=== PATIENT | female | born 1935 | race Caucasian/White ===

== ENCOUNTER 2017-05-08 11:11 | Emergency (ER) | payer MEDICARE, BC ==
[~2017-05-08] VITALS: Ht 160 cm; Wt 110.0 kg
[2017-05-08 13:10] LABS: BASOPHILS % (AUTO) 0.4 % (0-1); EOSINOPHILS # (AUTO) 0.3 X10'3 (0-0.9); EOSINOPHILS % (AUTO) 2.9 % (0-6); HEMATOCRIT 42.6 % (35.0-45.0); HEMOGLOBIN 14.6 g/dl (12.0-16.0); LYMPHOCYTES # (AUTO) 3.6 X10'3 (1.1-4.8); MEAN CORPUSCULAR HEMOGLOBIN 31.8 PG (27.0-31.0); MEAN CORPUSCULAR HGB CONC 34.2 % (33.0-36.5); MEAN PLATELET VOLUME 8.4 FL (7.4-10.4); MONOCYTES # (AUTO) 0.8 X10'3 (0-0.9); MONOCYTES % (AUTO) 7.6 % (2-12); NEUTROPHILS # (AUTO) 6.1 X10'3 (1.8-7.7); NEUTROPHILS % (AUTO) 56.1 % (42-75); PLATELET COUNT 227 X10'3 (140-440); RED BLOOD COUNT 4.58 X10'6 (4.20-5.60); RED CELL DISTRIBUTION WIDTH 14.4 % (11.5-14.5); WHITE BLOOD COUNT 10.9 X10'3 (4.5-11.0)
[2017-05-08] MEDS ORDERED: iohexol 350MG/ML 100ml bottle IV ONE (13:23)
[2017-05-08 13:26] LABS: ALANINE AMINOTRANSFERASE 45 U/L (12-78); ALBUMIN 3.5 G/DL (3.4-5.0); ALBUMIN/GLOBULIN RATIO 0.9 (1.1-1.5); ALKALINE PHOSPHATASE 76 IU/L (46-116); ANION GAP 8 (8-16); ASPARTATE AMINO TRANSFERASE 29 U/L (10-37); BILIRUBIN,TOTAL 0.6 MG/DL (0.1-1.0); BLOOD UREA NITROGEN 22 MG/DL (7-18); BUN/CREATININE RATIO 16.8 (6.6-38.0); CALCIUM 9.7 MG/DL (8.5-10.1); CHLORIDE 101 MMOL/L (99-107); CREATININE 1.31 MG/DL (0.40-0.90); GLUCOSE 297 MG/DL (70-104); POTASSIUM 4.7 MMOL/L (3.5-5.1); SODIUM 137 MMOL/L (135-145); TOTAL PROTEIN 7.2 G/DL (6.4-8.2); eGFR 39 ML/MIN
[2017-05-08] MEDS ORDERED: dexamethasone sod phosphate 10mg/ml inj IM STA (13:36)
[2017-05-08] MEDS ORDERED: NAPR-56 PO (16:36)
[2017-05-08] MEDS ORDERED: METH4TAB3 PO (16:36)
[2017-05-08 17:15] VITALS: BP 168/86
== END 2017-05-08 17:16 | disposition home or self-care (01) ==
LOC: ER 11:11
DX: M48.061 Spinal stenosis, lumbar region without neurogenic claudication (principal); M48.02 Spinal stenosis, cervical region; E11.9 Type 2 diabetes mellitus without complications; Z95.1 Presence of aortocoronary bypass graft; Z88.8 Allergy status to other drugs, medicaments and biological substances
CPT/HCPCS: 36415; 71045; 71275; 72141; 72148; 74174; 80053; 84484; 85025; 93005; 96372; 99291; 99292; J1100; Q9967; 71260; 74177

== ENCOUNTER 2017-05-14 11:53 | Emergency (ER) | payer MEDICARE, BC ==
[~2017-05-14] VITALS: Ht 160 cm; Wt 92.3 kg
[~2017-05-14 11:53] MED LIST: METH4TAB3 PO; NAPR-56 PO
[2017-05-14 12:02] VITALS: BP 107/57
[2017-05-14] MEDS ORDERED: PANT-47 PO (12:28)
[2017-05-14] MEDS ORDERED: pantoprazole 40mg Tablet.DR PO ONE (12:30)
== END 2017-05-14 12:53 | disposition home or self-care (01) ==
LOC: ER 11:53
DX: R10.12 Left upper quadrant pain (principal); E11.9 Type 2 diabetes mellitus without complications; Z95.1 Presence of aortocoronary bypass graft; Z88.6 Allergy status to analgesic agent
CPT/HCPCS: 82948; 99284

== ENCOUNTER 2021-07-05 14:54 | Emergency (ER) | payer MEDICARE, BC ==
[~2021-07-05] VITALS: Ht 160 cm; Wt 83.2 kg
[~2021-07-05 14:54] MED LIST changes: -NAPR-56 PO; +PANT-47 PO
[2021-07-05] MEDS ORDERED: morphine 4 MG/ML inj SYRINge IV ONE (17:45)
[2021-07-05] MEDS ORDERED: ondansetron/PF 4mg/2ml inj IV ONE (17:45)
[2021-07-05] MEDS ORDERED: propofol 10mg/ml 20ml vial IV ONE (18:25)
--- NOTE | 2021-07-05 19:30 | NUR ---
MEDICAL REVIEW SPECIALIST APPLYING SPLINT AT THIS TIME. X-RAY TECH CAME IN PRIOR.
[2021-07-05] MEDS ORDERED: HYDR-3965 PO (20:12)
[2021-07-05 20:34] VITALS: BP 166/71
== END 2021-07-05 20:20 | disposition home or self-care (01) ==
LOC: ER 14:54
DX: S53.115A Anterior dislocation of left ulnohumeral joint, initial encounter (principal); E11.9 Type 2 diabetes mellitus without complications; Z98.890 Other specified postprocedural states; Z88.1 Allergy status to other antibiotic agents; Z88.8 Allergy status to other drugs, medicaments and biological substances; Z79.899 Other long term (current) drug therapy; W19.XXXA Unspecified fall, initial encounter; Y93.89 Activity, other specified; Y92.89 Other specified places as the place of occurrence of the external cause; Y99.8 Other external cause status
CPT/HCPCS: 25605; 73080; 94799; 96374; 96375; 99152; 99285; J2270; J2405; J2704; 94760

== ENCOUNTER 2023-04-16 12:13 | Observation (INO) | payer MEDICARE, BC ==
[~2023-04-16] VITALS: Ht 157.5 cm; Wt 75.0 kg
[~2023-04-16 12:13] MED LIST changes: +BEMP180T PO; +CARV3.122 PO; +CHOL20003 PO; +CYAN-104 PO; +EMPA25TA PO; +FERR324T4 PO; +GLIP10TA21 PO; +LEVO50TA PO; +LOSA25TA41 PO; +MAGN500T2 PO; -METH4TAB3 PO; +OMEG-220 PO; +RIVA10TA PO
[2023-04-16 13:14] LABS: BASOPHILS % (AUTO) 0.4 % (0-1); EOSINOPHILS # (AUTO) 0.1 X10'3 (0-0.9); LYMPHOCYTES # (AUTO) 1.8 X10'3 (1.1-4.8); LYMPHOCYTES % (AUTO) 24.6 % (21-51); MEAN CORPUSCULAR HEMOGLOBIN 29.6 PG (27.0-31.0); MEAN CORPUSCULAR HGB CONC 30.9 g/dL (33.0-36.5); MEAN CORPUSCULAR VOLUME 95.8 FL (78-98); MEAN PLATELET VOLUME 7.4 FL (7.4-10.4); MONOCYTES # (AUTO) 0.4 X10'3 (0-0.9); MONOCYTES % (AUTO) 5.8 % (2-12); NEUTROPHILS % (AUTO) 68.2 % (42-75); PLATELET COUNT 351 X10'3 (140-440); RED BLOOD COUNT 2.23 X10'6 (4.20-5.60); RED CELL DISTRIBUTION WIDTH 15.5 % (11.5-14.5); WHITE BLOOD COUNT 7.4 X10'3 (4.5-11.0)
[2023-04-16 13:18] LABS: HEMATOCRIT 21.3 % (35.0-45.0); HEMOGLOBIN 6.6 g/dl (12.0-16.0)
[2023-04-16 13:21] LABS: ALBUMIN 3.1 G/DL (3.4-5.0); ANION GAP 8 (8-16); BLOOD UREA NITROGEN 35 MG/DL (7-18); BUN/CREATININE RATIO 21.6 (10.0-20.0); CALCIUM 8.4 MG/DL (8.5-10.1); CHLORIDE 100 MMOL/L (99-107); CREATININE 1.62 MG/DL (0.40-0.90); GLUCOSE 399 MG/DL (70-104); POTASSIUM 4.6 MMOL/L (3.5-5.1); SODIUM 135 MMOL/L (135-145); TOTAL CARBON DIOXIDE 26.7 MMOL/L (24-32); eCRCL 20 ML/MIN; eGFR 30 ML/MIN
[2023-04-16 13:22] LABS: APTT 34 SECONDS (22-32); INR 1.5 INR; PROTHROMBIN TIME 15.6 SECONDS (9.0-12.0)
[2023-04-16] MEDS ORDERED: magnesium 4gm in 100ml NS 100 ML IV PRN (15:35)
[2023-04-16] MEDS ORDERED: potassium Cl 20 mEq SR tablet PO PRN ×2 (15:35)
[2023-04-16] MEDS ORDERED: potassium Cl 40MEQ/1/2NS 520ml 520 ML IV PRN (15:35)
[2023-04-16] MEDS ORDERED: magnesium Cl slow-release 64mg tablet PO PRN (15:35)
[2023-04-16] MEDS ORDERED: ondansetron/PF 4mg/2ml inj IV PRN (15:35)
[2023-04-16] MEDS ORDERED: acetaminophen 325mg tablet PO PRN ×2 (15:35)
[2023-04-16] MEDS ORDERED: magnesium 2GM in 50ml NS 50 ML IV PRN (15:35)
[2023-04-16] MEDS ORDERED: RIVA20TA PO (16:19)
[2023-04-16] MEDS ORDERED: RED600CA2 PO (16:19)
[2023-04-16] MEDS ORDERED: MULT-1133 PO (16:19)
[2023-04-16] MEDS ORDERED: FOLI0.4T6 PO (16:19)
[2023-04-16 16:39] VITALS: BP 150/49; PULSE 73; RESP 16; TEMP 98.3
[2023-04-16 16:57] VITALS: BP 147/49; PULSE 67; RESP 18; TEMP 97.9
[2023-04-16 17:10] LABS: BILIRUBIN,URINE NEGATIVE (Neg); CLARITY,URINE CLEAR (Clear); COLOR,URINE YELLOW (Yellow); GLUCOSE, URINE >=1000 mg/dl (Neg); KETONES,URINE NEGATIVE (Neg); LEUKOCYTE ESTERASE ,URINE NEGATIVE (Neg); NITRITES, URINE NEGATIVE (Neg); OCCULT BLOOD,URINE NEGATIVE (Neg); PROTEIN,URINE NEGATIVE (Neg); UROBILINOGEN,URINE 0.2 E.U/dL (0.2-1.0)
[2023-04-16 17:16] LABS: UA COLLECTION TYPE CLN CATCH MIDSTREAM
[2023-04-16 17:20] LABS: BACTERIA,URINE FEW /HPF (Neg); RBC,URINE 0-2 /HPF (0-2); SQUAMOUS EPITHELIAL CELL,UR FEW /LPF (FEW); WBC,URINE 0-4 /HPF (0-4)
[2023-04-16] MEDS ORDERED: dextrose 50%-water 50ml dispensing syringe IV PRN ×2 (19:05)
[2023-04-16] MEDS ORDERED: DEXTROSE 15 GM of carb/4 tabs (each vial/BOTTLE has 4 tablets) PO PRN ×2 (19:05)
[2023-04-16] MEDS ORDERED: glucagon, human recombinant 1mg kit SUBCUT PRN (19:05)
[2023-04-16] MEDS: MESSAGE TO PHARMACY PO ONE (19:36)
[2023-04-16 19:55] VITALS: BP 154/52; PULSE 64; RESP 21; TEMP 98.1
[2023-04-16 20:16] VITALS: BP 149/53; PULSE 58; RESP 20; TEMP 98.6
[2023-04-16] MEDS: K and/or MAG REPLACEMENT MC SCH (21:14)
[2023-04-16] MEDS: insulin Lispro (HumaLOG) vial - multi-dose SQ SCH (21:26)
[2023-04-16] MEDS: insulin glargine (Lantus) pen - multi-dose SQ SCH (21:28)
[2023-04-16] MEDS: pantoprazole 40 MG vial IV SCH (21:29)
[2023-04-16 21:59] VITALS: BP 155/106; PULSE 67; RESP 21; TEMP 98.1
[2023-04-17 01:44] LABS: OCCULT BLOOD STOOL POSITIVE (Neg)
[2023-04-17 02:13] VITALS: BP 149/54; PULSE 52; RESP 20; TEMP 98.1; O2SAT 94
[2023-04-17 03:00] VITALS: RESP 20; O2SAT 94
[2023-04-17 03:17] VITALS: BP 149/54; PULSE 52; RESP 20; TEMP 98.1; O2SAT 94
[2023-04-17 03:58] VITALS: RESP 20; O2SAT 94
[2023-04-17 05:47] LABS: EOSINOPHILS # (AUTO) 0.2 X10'3 (0-0.9); MONOCYTES # (AUTO) 0.9 X10'3 (0-0.9)
[2023-04-17 05:50] LABS: BASOPHILS % (AUTO) 0.4 % (0-1); EOSINOPHILS % (AUTO) 1.8 % (0-6); HEMATOCRIT 30.8 % (35.0-45.0); LYMPHOCYTES # (AUTO) 2.6 X10'3 (1.1-4.8); MEAN CORPUSCULAR HGB CONC 32.4 g/dL (33.0-36.5); MEAN CORPUSCULAR VOLUME 92.5 FL (78-98); MEAN PLATELET VOLUME 7.3 FL (7.4-10.4); MONOCYTES % (AUTO) 8.3 % (2-12); NEUTROPHILS # (AUTO) 7.5 X10'3 (1.8-7.7); NEUTROPHILS % (AUTO) 66.5 % (42-75); PLATELET COUNT 274 X10'3 (140-440); RED BLOOD COUNT 3.32 X10'6 (4.20-5.60); RED CELL DISTRIBUTION WIDTH 16.7 % (11.5-14.5); WHITE BLOOD COUNT 11.3 X10'3 (4.5-11.0)
[2023-04-17 05:55] LABS: ALBUMIN 2.8 G/DL (3.4-5.0); ANION GAP 9 (8-16); BLOOD UREA NITROGEN 34 MG/DL (7-18); CALCIUM 8.5 MG/DL (8.5-10.1); CHLORIDE 105 MMOL/L (99-107); CREATININE 1.48 MG/DL (0.40-0.90); GLUCOSE 155 MG/DL (70-104); MAGNESIUM 2.2 MG/DL (1.5-2.4); POTASSIUM 4.1 MMOL/L (3.5-5.1); SODIUM 139 MMOL/L (135-145); TOTAL CARBON DIOXIDE 24.6 MMOL/L (24-32); eCRCL 22 ML/MIN; eGFR 34 ML/MIN
[2023-04-17 06:00] VITALS: BP 142/37; PULSE 57; RESP 18; TEMP 97.5; O2SAT 92
[2023-04-17 10:00] VITALS: BP 138/47; PULSE 71; RESP 18; TEMP 98.3; O2SAT 96
[2023-04-17] MEDS ORDERED: EMPAGLIFLOZIN 25 MG TABLET PO SCH (13:15)
[2023-04-17] MEDS: folic acid 0.4mg tablet PO SCH (15:46)
[2023-04-17] MEDS ORDERED: carVEDilol 3.125mg tablet PO SCH (20:00)
[2023-04-17] MEDS ORDERED: pantoprazole 40mg Tablet.DR PO SCH (20:00)
[2023-04-17] MEDS ORDERED: OMEGA-3/DHA/EPA/FISH OIL 1 EACH CAPSULE.DR PO SCH (20:00)
[2023-04-17] MEDS ORDERED: losartan 25mg tablet PO SCH (21:00)
[2023-04-17] MEDS ORDERED: rivaroxaban 20mg tablet PO SCH (21:00)
[2023-04-18] MEDS ORDERED: ferrous sulfate 325mg tablet PO SCH (08:00)
[2023-04-18] MEDS ORDERED: multivitamins, therapeutics tablet PO SCH (08:00)
[2023-04-18] MEDS ORDERED: levoTHYROXINE 25mcg tablet PO SCH (08:00)
[2023-04-18] MEDS ORDERED: magnesium oxide 400mg tablet PO SCH (08:00)
[2023-04-18] MEDS ORDERED: cholecalciferol (vitamin D3) 1,000 unit (25mcg) tablet PO SCH (08:00)
[2023-04-18] MEDS ORDERED: RED YEAST RICE PO SCH (08:00)
== END 2023-04-17 17:25 | disposition home or self-care (01) ==
LOC: ER 12:14 → ED HOLD 15:36 → UNDOADMOB 15:36 → ED HOLD 04-17 00:43 → SUR 3N 04-17 01:41
PROVIDERS: ADMIT Internal Medicine; ATTEND Internal Medicine
DX: D50.0 Iron deficiency anemia secondary to blood loss (chronic) (principal); I25.10 Atherosclerotic heart disease of native coronary artery without angina pectoris; I11.0 Hypertensive heart disease with heart failure; I50.9 Heart failure, unspecified; E11.9 Type 2 diabetes mellitus without complications; E03.9 Hypothyroidism, unspecified; E78.5 Hyperlipidemia, unspecified; K21.9 Gastro-esophageal reflux disease without esophagitis; E78.00 Pure hypercholesterolemia, unspecified; K92.2 Gastrointestinal hemorrhage, unspecified; Z66 Do not resuscitate; Z79.01 Long term (current) use of anticoagulants; Z79.84 Long term (current) use of oral hypoglycemic drugs; Z95.1 Presence of aortocoronary bypass graft; Z79.899 Other long term (current) drug therapy
CPT/HCPCS: 36415; 36430; 80048; 81001; 82272; 82948; 83036; 83735; 85025; 85610; 85730; 86885; 86900; 86901; 86920; 87081; 93005; 96374; 96376; 99285; C9113; G0378; J1815; J7030; P9016

== ENCOUNTER 2023-06-28 14:48 | Emergency (ER) | payer MEDICARE, BC ==
[~2023-06-28] VITALS: Ht 162.6 cm; Wt 80.0 kg
[~2023-06-28 14:48] MED LIST changes: -BEMP180T PO; -CYAN-104 PO; +FOLI0.4T6 PO; -GLIP10TA21 PO; +MULT-1133 PO; -PANT-47 PO; +RED600CA2 PO; -RIVA10TA PO; +RIVA20TA PO
[2023-06-28 14:55] VITALS: BP 143/92; PULSE 58; RESP 18; TEMP 98.6; O2SAT 97
== END 2023-06-28 16:40 | disposition left against medical advice (07) ==
LOC: ER 14:49
DX: D58.2 Other hemoglobinopathies (principal); Z53.21 Procedure and treatment not carried out due to patient leaving prior to being seen by health care provider

== ENCOUNTER 2024-07-25 11:42 | Emergency (ER) | payer MEDICARE, BC ==
[~2024-07-25] VITALS: Ht 157.5 cm; Wt 62.7 kg
[~2024-07-25 11:42] MED LIST changes: -OMEG-220 PO; +OMEG-270 PO; +PANT-47 PO
[2024-07-25 13:11] LABS: BASOPHILS # (AUTO) 0.1 X10'3 (0-0.2); BASOPHILS % (AUTO) 1.2 % (0-1); EOSINOPHILS # (AUTO) 0.1 X10'3 (0-0.9); EOSINOPHILS % (AUTO) 1.4 % (0-6); LYMPHOCYTES # (AUTO) 1.9 X10'3 (1.1-4.8); MEAN CORPUSCULAR HEMOGLOBIN 31.9 PG (27.0-31.0); MEAN CORPUSCULAR HGB CONC 32.5 g/dL (33.0-36.5); MEAN PLATELET VOLUME 6.9 FL (7.4-10.4); MONOCYTES # (AUTO) 0.4 X10'3 (0-0.9); MONOCYTES % (AUTO) 5.6 % (2-12); NEUTROPHILS # (AUTO) 5.3 X10'3 (1.8-7.7); NEUTROPHILS % (AUTO) 67.8 % (42-75); PLATELET COUNT 415 X10'3 (140-440); RED BLOOD COUNT 2.21 X10'6 (4.20-5.60); RED CELL DISTRIBUTION WIDTH 14.4 % (11.5-14.5); WHITE BLOOD COUNT 7.8 X10'3 (4.5-11.0)
[2024-07-25 13:24] LABS: HEMATOCRIT 21.6 % (35.0-45.0)
[2024-07-25 13:25] LABS: ALBUMIN 3.3 G/DL (3.4-5.0); ANION GAP 15 (8-16); BLOOD UREA NITROGEN 79 MG/DL (7-18); BUN/CREATININE RATIO 33.1 (10.0-20.0); CALCIUM 9.1 MG/DL (8.5-10.1); CHLORIDE 102 MMOL/L (99-107); CREATININE 2.39 MG/DL (0.40-0.90); GLUCOSE 198 MG/DL (70-104); POTASSIUM 5.3 MMOL/L (3.5-5.1); SODIUM 142 MMOL/L (135-145); TOTAL CARBON DIOXIDE 25.5 MMOL/L (24-32); eCRCL 13 ML/MIN; eGFR 19 ML/MIN
--- NOTE | 2024-07-25 17:51 | Physician Documentation ---
History of Present Illness ~ Chief Complaint: Weakness Stated Complaint: ABNORMAL LABS Time Seen by MD: 17:39 OK to notify your PCP?: Yes Primary Medical Doctor: MAGALI ERAZO Mode of Arrival: Dropped Off HPI 88-year-old female who presents to the emergency department at the request of her doctor for a blood transfusion, patient has a history of anemia and has been evaluated by a food safety coordinator in [facility], has been transferred back up to the [facility] in his waiting to get a new hematology oncologist. She has had endoscopies and colonoscopies in the can not find the source of the blood loss. 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 Patient does have a history of three way heart bypass and cardiovascular disease. Timing/Duration: days Prehospital Care: none Weakness: generalized Activities at Onset: light exertion Symptoms: None History of: No History of: GI bleed Severity: none Medication Reconciliation Allergies: Coded Allergies: amoxicillin (Unverified Allergy, Unknown, 07/25/24) clavulanic acid (Unverified Allergy, Unknown, 07/25/24) levofloxacin (Unverified Allergy, Unknown, 07/25/24) liraglutide (Unverified Allergy, Unknown, 07/25/24) rosiglitazone (Unverified Allergy, Unknown, 07/25/24) saxagliptin (Unverified Allergy, Unknown, 07/25/24) Uncoded Allergies: REPATHA (Allergy, Intermediate, FLUID ON LUNGS, 01/26/23) WAS ADMITTED 04/2022 FOR REPATHA ALLERGY PER PATIENT Scheduled Carvedilol (Carvedilol), 1 TAB PO BID, (Reported) Cholecalciferol (Vitamin D3) (Vitamin D3), 1 TAB PO DAILY, (Reported) Empagliflozin (Jardiance), 1 TAB PO DAILY, (Reported) Ferrous Sulfate (Ferrous Sulfate), 1 TAB PO DAILY Folic Acid* (Folic Acid*), 400 MCG PO DAILY, (Reported) Levothyroxine Sodium (Synthroid), 1 TAB PO DAILY, (Reported) Losartan Potassium (Losartan Potassium), 1 TAB PO HS, (Reported) Magnesium Oxide (Magnesium Oxide), 0.5 TAB PO DAILY, (Reported) Multivits-Min/Iron/FA/Lutein (Centrum Silver Women Tablet), 1 TAB PO DAILY, (Reported) Mcgrath-3 Acid Ethyl Esters (Mcgrath-3 Acid Ethyl Esters), 2 CAP PO BID, (Reported) Pantoprazole Sodium (PROTONIX tablet), 40 MG PO DAILY Red Yeast Rice (Red Yeast Rice), 2 CAP PO DAILY, (Reported) Rivaroxaban (Xarelto), 1 TAB PO HS, (Reported) Past Medical History Past Medical History: Atrial Fibrillation, Coronary Artery Disease, Congestive Heart Failure, High Cholesterol, Hypertension, Diabetes, Thyroid (unspecified) Past Surgical History: coronary bypass surgery Patient History: FH: HTN (hypertension) FH: diabetes mellitus Alcohol Use: None Drug Use: none Lives with: Family Lives In: Home Occupation: retired Review of Systems All Other Systems at this time: Reviewed and Negative Constitutional: Reports: see HPI, weakness Eyes: Reports: no symptoms reported ENT: Reports: no symptoms reported Respiratory: Reports: no symptoms reported Cardiovascular: Reports: no symptoms reported Gastrointestinal: Denies: constipated, melena, hematemesis, hematochezia, rectal bleeding Genitourinary: Reports: no symptoms reported Physical Exam Vital Signs: RN Vital Signs have been reviewed: Yes, Source: Oral, Heart Rate: 66, Respiratory Rate: 18, BP: 192/60, Pulse Oximetry: 98, Weight: 62.730 Oxygen Flow Rate: 0 Pulse Oximetry Reflects: adequate oxygenation General Appearance: alert, WD/WN, no apparent distress Neck: non-tender, full range of motion, supple Head: normal; No: deformity EENT: normal ENT inspection, moist mucous membranes Respiratory: lungs clear, normal breath sounds, no respiratory distress Skin: pallor Coordination / Gait: normal finger to nose, normal gait Motor / Sensory: no motor deficit, no sensory deficit Progress Results/Orders Results/Orders Orders - JOSE E HOLT DO [facility] - Active Bleeding (07/25/24 12:49) Vital Signs 07/25/24 07/25/24 07/25/24 12:02 16:59 17:01 Pulse 70 66 Resp 14 18 18 B/P (MAP) 148/43 192/60 (104) Pulse Ox 100 98 O2 Flow Rate 0 0 Laboratory Tests Test 07/25/24 12:48 07/25/24 12:49 White Blood Count 7.8 Red Blood Count 2.21 L Hemoglobin 7.0 *L Hematocrit 21.6 *L Mean Corpuscular Volume 98.0 Mean Corpuscular Hemoglobin 31.9 H Mean Corpuscular Hemoglobin Concent 32.5 L Red Cell Distribution Width 14.4 Platelet Count 415 Mean Platelet Volume 6.9 L Neutrophils (%) (Auto) 67.8 Lymphocytes (%) (Auto) 24.0 Monocytes (%) (Auto) 5.6 Eosinophils (%) (Auto) 1.4 Basophils (%) (Auto) 1.2 H Neutrophils # (Auto) 5.3 Lymphocytes # (Auto) 1.9 Monocytes # (Auto) 0.4 Eosinophils # (Auto) 0.1 Basophils # (Auto) 0.1 CBC Comment Sodium Level 142 Potassium Level 5.3 H Chloride Level 102 Carbon Dioxide Level 25.5 Anion Gap 15 Blood Urea Nitrogen 79 H Creatinine 2.39 H Estimated GFR/1.73 m2 19 BUN/Creatinine Ratio 33.1 H Glucose Level 198 H Calcium Level 9.1 Albumin 3.3 L Chemistry Comments Re-Evaluation Re-Evaluation : Progress 5:45 p.m. plan is to transfuse 2 units of blood to his already been ordered, after transfusion discharge the patient home for outpatient follow up, there was no acute bleeding at this time. Heart Score: Heart Score Response (Comments) Value History N/A 0 EKG N/A 0 Age N/A 0 Risk Factors N/A 0 Troponin N/A 0 Total 0 Medical Decision Making Differential Dx:Considerations: Include: CVA, dehydration, electrolyte imbalance, encephalopathy, hypovolemia, myocardial infarction Departure Disposition: 01 HOME / SELF CARE / HOMELESS Impression: Primary Impression: Anemia Condition: Improved Discharge Instructions: Anemia Referrals: NO PRIMARY CARE PROVIDER (PCP) Education Educated: Patient, Family Educated regarding: diagnosis, treatment, prognosis Signature Scribe Signature: None Attestation: Dictated by myself JOSE E HOLT DO Jul 25, 2024 17:51
[2024-07-25 23:56] VITALS: BP 138/44; PULSE 64; RESP 18; TEMP 98
[2024-07-26] VITALS (11 sets, daily range): BP systolic 134–175; BP diastolic 37–69; PULSE 56–64; RESP 14–18; TEMP 97.5–98.1; O2SAT 98
== END 2024-07-26 05:18 | disposition home or self-care (01) ==
LOC: ER 11:43
DX: D64.9 Anemia, unspecified (principal); E11.9 Type 2 diabetes mellitus without complications; E78.00 Pure hypercholesterolemia, unspecified; I11.0 Hypertensive heart disease with heart failure; I50.9 Heart failure, unspecified; I25.10 Atherosclerotic heart disease of native coronary artery without angina pectoris; I48.91 Unspecified atrial fibrillation; Z88.0 Allergy status to penicillin; Z88.1 Allergy status to other antibiotic agents; Z88.8 Allergy status to other drugs, medicaments and biological substances; Z95.1 Presence of aortocoronary bypass graft
CPT/HCPCS: 36415; 36430; 80048; 85025; 86870; 86885; 86900; 86901; 86902; 86905; 86922; 99285; J7050; P9016

== ENCOUNTER 2024-12-20 12:45 | Inpatient (IN) | payer MEDICARE, BC ==
[~2024-12-20] VITALS: Ht 157.5 cm; Wt 65.8 kg
[2024-12-20 13:37] LABS: MEAN PLATELET VOLUME 7.7 FL (7.4-10.4); RED CELL DISTRIBUTION WIDTH 14.1 % (11.5-14.5)
[2024-12-20 13:49] LABS: CREATININE 2.78 MG/DL (0.40-0.90); TOTAL CARBON DIOXIDE 24.7 MMOL/L (24-32); eCRCL 11 ML/MIN; eGFR 16 ML/MIN
[2024-12-20] MEDS: normal saline 1000ML IV soln IVB ONE (14:30)
[2024-12-20 15:08] LABS: LEUKOCYTE ESTERASE ,URINE NEGATIVE (Neg); NITRITES, URINE NEGATIVE (Neg); OCCULT BLOOD,URINE TRACE-INTACT (Neg)
[2024-12-20 15:12] LABS: UA COLLECTION TYPE CLN CATCH MIDSTREAM
[2024-12-20 15:13] LABS: MUCUS STRANDS FEW /LPF (Neg); SQUAMOUS EPITHELIAL CELL,UR FEW /LPF (FEW)
--- NOTE | 2024-12-20 15:21 | Physician Documentation ---
History of Present Illness ~ Chief Complaint: See Chief Complaint Stated Complaint: SEE CHIEF COMPLAINT Time Seen by MD: 14:06 OK to notify your PCP?: Yes Primary Medical Doctor: MAGALI Source: patient Mode of Arrival: POV Exam Limitations: no limitations HPI Presents for increased weakness and fatigue. She reports that in July she had a low hemoglobin which required a blood transfusion and she was weak at that time. She is wanting to make sure that her hemoglobin is normal. She is due to see the kidney specialist this month. She chronically has a low GFR and is not been checking her blood sugars at home. She is only taking Jardiance for her diabetes, no insulin prescribed. She does report having corn flakes with sugar this morning around 10 30. She has had darker stools but there has been no change in her stools as she is taking iron supplementation. She denies any vomiting or abdominal pain. Medication Reconciliation Allergies: Coded Allergies: amoxicillin (Unverified Allergy, Unknown, 12/20/24) clavulanic acid (Unverified Allergy, Unknown, 12/20/24) levofloxacin (Unverified Allergy, Unknown, 12/20/24) liraglutide (Unverified Allergy, Unknown, 12/20/24) rosiglitazone (Unverified Allergy, Unknown, 12/20/24) saxagliptin (Unverified Allergy, Unknown, 12/20/24) Uncoded Allergies: REPATHA (Allergy, Intermediate, FLUID ON LUNGS, 01/26/23) WAS ADMITTED 04/2022 FOR REPATHA ALLERGY PER PATIENT Scheduled Carvedilol (Carvedilol), 1 TAB PO BID, (Reported) Cholecalciferol (Vitamin D3) (Vitamin D3), 1 TAB PO DAILY, (Reported) Empagliflozin (Jardiance), 1 TAB PO DAILY, (Reported) Ferrous Sulfate (Ferrous Sulfate), 1 TAB PO DAILY Folic Acid* (Folic Acid*), 400 MCG PO DAILY, (Reported) Levothyroxine Sodium (Synthroid), 1 TAB PO DAILY, (Reported) Losartan Potassium (Losartan Potassium), 1 TAB PO HS, (Reported) Magnesium Oxide (Magnesium Oxide), 0.5 TAB PO DAILY, (Reported) Multivits-Min/Iron/FA/Lutein (Centrum Silver Women Tablet), 1 TAB PO DAILY, (Reported) Webster-3 Acid Ethyl Esters (Webster-3 Acid Ethyl Esters), 2 CAP PO BID, (Reported) Pantoprazole Sodium (PROTONIX tablet), 40 MG PO DAILY Red Yeast Rice (Red Yeast Rice), 2 CAP PO DAILY, (Reported) Rivaroxaban (Xarelto), 1 TAB PO HS, (Reported) Past Medical History Past Medical History: Atrial Fibrillation, Coronary Artery Disease, Congestive Heart Failure, High Cholesterol, Hypertension, Diabetes, Thyroid (unspecified) Past Surgical History: coronary bypass surgery Patient History: FH: HTN (hypertension) FH: diabetes mellitus Alcohol Use: None Drug Use: none Lives with: Family Lives In: Home Occupation: retired Review of Systems All Other Systems at this time: Reviewed and Negative Physical Exam Vital Signs: RN Vital Signs have been reviewed: Yes, Temperature: 97.1, Source: Temporal, Heart Rate: 66, Respiratory Rate: 20, BP: 174/45, Pulse Oximetry: 98, Weight: 65.800 Oxygen Flow Rate: 0 Pulse Oximetry Reflects: adequate oxygenation Progress Results/Orders Reviewed/noted all lab results: Yes Results/Orders Orders - MARGARITA MOSHER Saline Lock (12/20/24 ) Monitor (12/20/24 15:19) Accucheck (12/20/24 ) Page Hospitalist (12/20/24 17:42) Fill Out Med Reconciliation (12/20/24 17:42) Completed Orders - MARGARITA MOSHER Normal Saline 1000ml (0.9% Sodium Chlori (12/20/24 14:40) Ua W/Microscopic, Cult If Ind (12/20/24 15:00) Electrocardiogram (12/20/24 15:19) Hs Troponin I W Calculations (12/20/24 15:19) Medications Received in ER Medications (Trade) Dose Ordered Sig/Jackie Route PRN Reason Start Time Stop Time Status Last Admin Dose Admin (0.9% sodium chloride (NS) 1000ml IV soln) 500 ml ONCE ONCE IVB 12/20/24 14:40 12/20/24 14:57 DC 12/20/24 16:10 500 ML Vital Signs 12/20/24 12:59 Temp 97.1 Pulse 66 Resp 20 B/P (MAP) 174/45 Pulse Ox 98 O2 Flow Rate 0 Laboratory Tests Test 12/20/24 13:22 12/20/24 15:00 12/20/24 16:55 White Blood Count 6.9 Red Blood Count 2.88 L Hemoglobin 8.9 L Hematocrit 26.9 L Mean Corpuscular Volume 93.5 Mean Corpuscular Hemoglobin 31.0 Mean Corpuscular Hemoglobin Concent 33.2 Red Cell Distribution Width 14.1 Platelet Count 290 Mean Platelet Volume 7.7 Neutrophils (%) (Auto) 61.8 Lymphocytes (%) (Auto) 27.1 Monocytes (%) (Auto) 7.4 Eosinophils (%) (Auto) 2.7 Basophils (%) (Auto) 1.0 Neutrophils # (Auto) 4.3 Lymphocytes # (Auto) 1.9 Monocytes # (Auto) 0.5 Eosinophils # (Auto) 0.2 Basophils # (Auto) 0.1 CBC Comment Sodium Level 131 L Potassium Level 5.4 H Chloride Level 99 Carbon Dioxide Level 24.7 Anion Gap 7 L Blood Urea Nitrogen 71 H Creatinine 2.78 H Estimated GFR/1.73 m2 16 BUN/Creatinine Ratio 25.5 H Glucose Level 341 H Calcium Level 9.1 Troponin I High Sensitivity 30 Pro-B-Type Natriuretic Peptide 3807 H Albumin 3.3 L Chemistry Comments Urine Specimen Description Cln catch midstream Urine Color Yellow Urine Clarity Clear Urine pH 6.0 Urine Specific [place] 1.010 Urine Protein 30 H Urine Glucose (UA) >=1000 H Urine Ketones Negative Urine Occult Blood Trace-intact Urine Nitrite Negative Urine Bilirubin Negative Urine Urobilinogen 0.2 Urine Leukocyte Esterase Negative Urine RBC 0-2 Urine WBC 0-4 Urine Squamous Epithelial Cells Few Urine Bacteria None seen Urine Mucus Few Urine Culture Indicated Not ind Volume Urine Centrifuged 10 ml Urine Comment Glucometer 203 H EKG/XRAY/CT/US/VASC/MRI EKG : Additional Comment Electrocardiogram: as interpreted by me; junctional rhythm, no axis deviation, no acute ischemia, normal intervals, no pre-excitation pattern. Rate: 48 Medical Decision Making Additional information obtaine: old records Findings Presents with increased weakness and is worried about her hemoglobin. Labs reveal hemoglobin 8.9, glucose elevated, potassium 5.4, sodium 131, BUN 71, GFR 16, elevated proBNP. We discussed that she is not at a level to receive a blood transfusion at this time. I did order 500 mL bolus of normal saline to help address the sodium and glucose. She reports that she can not take insulin as she is very sensitive to it. Is only taking Jardiance for her diabetes. She does not take her blood sugars at home regularly. On physical exam she does have some trace pitting edema to her right lower extremity and 1+ pitting edema to her left lower extremity which she reports is normal after her heart procedure. She is due to see the metal cut off saw tender later this month. I ordered an EKG due to the elevated potassium in it revealed junctional rhythm rate 48. We discussed that as she drove herself here and lives alone, it would not be safe for her to leave with her electrolytes out of balance and a heart rate of 48 and feeling fatigue. This is like clean the cause of her weakness and fatigue. Due to her elevated proBNP, she is showing acute on chronic heart failure although she denies any chest pain or shortness of breath. Her urine is negative for UTI with positive for protein and glucose. I discussed this case with Dr. Kelsey who recommends admission for further workup. Spoke with admitting resident who accepts this admission. Differential Dx:Considerations: Include: anemia, CVA, dehydration, dysrhythmia, electrolyte imbalance, encephalopathy, hypovolemia, myocardial infarction, renal failure, vertigo central, vestibular neuronitis Departure Disposition: ADMITTED INPATIENT Impression: Primary Impression: Anemia Additional Impressions: Acute on chronic congestive heart failure Hyperkalemia Hyponatremia Kidney failure Hypertension Referrals: NO PRIMARY CARE PROVIDER (PCP) Additional Comment Medical Screen Exam This patient recieved a medical screening examination. After reviewing the individual's medical complaints with presenting symptoms and performing an appropriate physical examination, it was determined that no immediate life- threatening emergency medical condition is present. This individual is also not a women having contractions. Signature Scribe Signature: . Attestation: Scribed for Margarita Mosher by Margarita Reddy NP . 12/20/24 18:10 Parts of this note were created using [email or web address] voice recognition software program. While efforts were made to correct any mistakes made by this voice recognition software program, nonsensical phrases may remain in this note. In addition, there may be errors and syntax, grammar, content and spelling. MARGARITA MOSHER Dec 20, 2024 15:21
[2024-12-20 15:49] LABS: PRO BRAIN NATRIURETIC PEPTIDE 3807 PG/ML (0-450)
--- NOTE | 2024-12-20 16:29 | ELECTROCARDIOGRAPH REPORT ---
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 SHERAMN Johnson Measurements Intervals [place] Rate: 48 P: 0 ND: 0 QRS: 49 QRSD: 94 T: 6 QT: 474 QTc: 424 Interpretive Statements Junctional rhythm Borderline T wave abnormalities Electronically Signed On 12-21-2024 11:48:[address] SHERMAN Johnson Please click the below link to view image of tracing.
[2024-12-20] MEDS ORDERED: magnesium sulf-water 2g/50mL 50 ML IV PRN (18:45)
[2024-12-20] MEDS ORDERED: magnesium Cl slow-release 64mg tablet PO PRN (18:45)
[2024-12-20] MEDS ORDERED: ondansetron/PF 4mg/2ml inj IV PRN (18:45)
[2024-12-20] MEDS ORDERED: HYDROcodone/acetaminophen 5mg/325mg tablet PO PRN (18:45)
[2024-12-20] MEDS ORDERED: potassium Cl 40MEQ/1/2NS 520ml 520 ML IV PRN (18:45)
[2024-12-20] MEDS ORDERED: HYDROcodone/acetaminophen 10/325mg tab PO PRN (18:45)
[2024-12-20] MEDS ORDERED: mag hydrox/Alum hydrox/simeth 30ml oral suspension PO PRN (18:45)
[2024-12-20] MEDS ORDERED: magnesium sulf-water 4G/100mL 100 ML IV PRN (18:45)
[2024-12-20] MEDS ORDERED: potassium Cl 20 mEq SR tablet PO PRN ×2 (18:45)
--- NOTE | 2024-12-20 18:59 | HISTORY AND PHYSICAL-Residence ---
History & Physical Providers to CC Resident Creating Document: NAFISA NUNEZ RES ~ History of Present Illness Primary Medical Doctor: MAGALI Reason for Admit\Complaint: DONNA, ANEMIA, WEAKNESS History of Present Illness 88-year-old female with history of heart failure with preserved EF, hypertension, diabetes, chronic kidney disease, CAD status post CABG presented to the ED with chief complaints of worsening weakness for the last couple of days. Denies significant chest pains, diaphoresis, fevers/chills, nasal congestion, expectoration, palpitations, or weight loss/weight gain. She states that she feels this way whenever her hemoglobin drops and she was concerned that she might require blood transfusion hence she came to the ED. She has been having chronic anemia for the past two years had multiple tests and evaluations done with no significant diagnosis or cause behind her anemia. She also had a bone marrow biopsy done in February 2024 which did not show any significant findings. They were concerned that it was CKD that was the cause of her anemia. She used to see a cattle dehorner in the past, but has not seen one in the last six years, has an appointment with Dr. Rose at the end of this month. She has a primary care provider at [facility]. She is aware about her CKD but does not remember her baseline creatinine. States she was started on Jardiance and since her creatinine has been down hill. She is able to make urine. She does not have symptoms of UTI like burning, urgency frequency or lower abdominal pain. She had a blood draw on Sunday for her process plant operator her hemoglobin was 10, today it is 8.6. She does not have hematemesis or melena. She does take iron supplementation. She had EGD and colonoscopy done in February 2024, normal results. She does not drink or smoke. Is independent in daily activities uses a cane for walking and lives by herself. She does take aspirin 81 for history of CAD. Does not use NSAIDs like ibuprofen Motrin and Aleve. 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 Discussed advanced care directives and she wishes to be DNR. Allergies: Coded Allergies: amoxicillin (Unverified Allergy, Unknown, 12/20/24) clavulanic acid (Unverified Allergy, Unknown, 12/20/24) levofloxacin (Unverified Allergy, Unknown, 12/20/24) liraglutide (Unverified Allergy, Unknown, 12/20/24) rosiglitazone (Unverified Allergy, Unknown, 12/20/24) saxagliptin (Unverified Allergy, Unknown, 12/20/24) Uncoded Allergies: REPATHA (Allergy, Intermediate, FLUID ON LUNGS, 01/26/23) WAS ADMITTED 04/2022 FOR REPATHA ALLERGY PER PATIENT Home Medications Home Medications Active PROTONIX tablet (Pantoprazole Sodium) 40 Mg Tablet.dr 40 Mg PO DAILY 30 Days Ferrous Sulfate 324 Mg (65 Mg Iron) Tablet.dr 1 Tab PO DAILY 30 Days Reported Centrum Silver Women Tablet (Multivits-Min/Iron/FA/Lutein) 8 Mg Iron-400 Mcg-50 Mcg-300 Mcg Tablet 1 Tab PO DAILY Red Yeast Rice 600 Mg Capsule 2 Cap PO DAILY Folic Acid* (Folic Acid) 0.4 Mg Tablet 400 Mcg PO DAILY Xarelto (Rivaroxaban) 20 Mg Tablet 1 Tab PO HS with food Redford-3 Acid Ethyl Esters 1 Gram Capsule 2 Cap PO BID Carvedilol 3.125 Mg Tablet 1 Tab PO BID Synthroid (Levothyroxine Sodium) 50 Mcg Tablet 1 Tab PO DAILY Jardiance (Empagliflozin) 25 Mg Tablet 1 Tab PO DAILY Magnesium Oxide 500 Mg Tablet 0.5 Tab PO DAILY Losartan Potassium 25 Mg Tablet 1 Tab PO HS Vitamin D3 (Cholecalciferol (Vitamin D3)) 50 Mcg Tablet 1 Tab PO DAILY Past Medical History Past Medical History Hypertension Diabetes Chronic kidney disease Heart failure with preserved EF CAD Thyroid disorder Past Surgical History Surgical History Comment Right knee surgery CABG x3 Cholecystectomy Cataract surgeries Family History Family History: FH: HTN (hypertension) FH: diabetes mellitus Past Social History Alcohol Use: None Drug Use: None Lives with: Family Lives In: Home Occupation: retired ROS All Other Systems: Reviewed and Negative ROS Reviewed in full. All negative except for pertinent positive HPI. Exam Vitals: Vital Signs Date Time Temp Pulse Resp B/P (MAP) Pulse Ox O2 Delivery O2 Flow Rate FiO2 12/20/24 18:24 16 12/20/24 18:22 53 176/52 (93) 100 12/20/24 12:59 97.1 0 General: General: Pale-appearing elderly female, Awake and Alert, no acute distress. HEENT: Conjunctiva pale, Sclera clear, Mucus Membranes moist. Neck: Supple without masses and tenderness. Resp: Unlabored. Equal breath sounds bilaterally. Heart: Regular rhythm, normal S1 and S2, no rub, murmur or gallop. Abdomen: Soft and non tender no organomegaly. Normal bowel sounds x4 quadrant normoactive. No guarding or rigidity. Extremities: Left lower extremity swelling (chronic), bilateral lower extremity trace edema. Normal range of motion. No cyanosis or clubbing. Musculoskeletal: Normal posture and gait. No joint swelling, deformity or tenderness, full range of motion and strength 5 x 5 in all extremities. 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 Skin: Small Bruises on bilateral upper extremities. Diagnostic Data Last Recorded Lab Results: 12/20/24 1322 12/20/24 1322 Advance Care Planning Advanced Care plannin - 30 Minutes (I spent total of 15-30 minutes reviewing various resuscitative measures with the patient. Patient decided to be DNR.) Additional Plan 88-year-old female with history of heart failure with preserved EF, hypertension, diabetes, chronic kidney disease, CAD status post CABG presented to the ED with chief complaints of worsening weakness for the last couple of days. Generalized weakness Normocytic normochromic anemia Age-related debility Hyponatremia, Hyperkalemia Complaints of worsening weakness for the last couple of days Hemoglobin hematocrit 8.9 26.9 MCV 93 Hyponatremia sodium 131 Does not have any signs or symptoms of infection Follow up with lactic acid, procalcitonin, UA U tox Received 500 bolus in the ED, continue IV fluids at 100 mL/hour H&H stable does not have any signs of active bleeding, continue to monitor and transfuse for hemoglobin less than seven She had EGD and colonoscopy done in February 2024, no significant findings noted. DONNA on CKD stage III likely secondary to renal tubular stasis Baseline creatinine per EMR 1.3-1.9 Creatinine significantly elevated 2.7 Received 500 bolus in the ED Continue hydration IV fluids at 100 mL/hour She does have a history of CHF, currently she requires hydration as she has significant DONNA, monitor fluid status and titrate fluids as able Follow up with ultrasound kidney and urine spot studies Elevated BNP, EF is 65-70 per echo in 05/04 She does have a BNP of 3807, She does have chronic left lower extremity swelling since the time she had CABG She has bilateral lower extremity trace edema, lungs are clear She is on GDM T at home with Coreg 3.125 b.i.d., Jardiance 10, losartan 100, Aldactone 25, Lasix 40 once daily Holding all the above medications except Coreg as she is in DONNA Follow up with echo, Currently being fluid resuscitated, reassess fluid status in a.m. and adjust fluids as able Diabetes type 2 Follow up with A1c On hyper hypoglycemia protocol, have started 3 units of Lantus and low-dose protocol She states that she is very sensitive to insulin, we will start with low-dose titrate as needed Careful monitoring of blood sugars Hypertension Resuming home medication Coreg 3.125 b.i.d. and amlodipine 2.5 daily Home medications: Synthroid 75 mcg Coreg 3.125 b.i.d. Jardiance 10 daily Losartan 100 daily Aldactone 25 daily Atorvastatin 10 daily Iron supplementation Lasix 40 daily 2.5 amlodipine Aspirin 81 daily Awaiting med rec Code Status: DNR DVT prophylaxis: Heparin Analgesia/sedation: None Line/tube: PIV GI prophylaxis: Protonix Nutrition: Heart healthy Prognosis: Guarded Disposition: Continue medical management. Patient seen, examined and discussed with the attending physician Dr. Pinto. Nafisa Nunez MD. Resident PGY-3 Date of Service: Dec 20, 2024 Billing Provider: ROBERT PINTO MD Common Visit Codes: 96525-[id number] INP/OBS CARE (HIGH) Secondary Visit Codes: [id number] CARE PLAN 30 MINUTES NAFISA NUNEZ, KVNG Dec 20, 2024 18:59 ROBERT PINTO MD Dec 22, 2024 06:16
[2024-12-20] MEDS: K and/or MAG REPLACEMENT MC SCH (19:00)
[2024-12-20] MEDS ORDERED: glucagon, human recombinant 1mg kit SUBCUT PRN (19:25)
[2024-12-20] MEDS ORDERED: dextrose 50%-water 50ml dispensing syringe IV PRN ×2 (19:25)
[2024-12-20] MEDS ORDERED: DEXTROSE 15 GM of carb/4 tabs (each vial/BOTTLE has 4 tablets) PO PRN ×2 (19:25)
[2024-12-20] MEDS: normal saline 1000ml 1,000 ML IV SCH (19:30)
[2024-12-20] MEDS: insulin glargine (Lantus) pen - multi-dose SQ SCH (19:30)
--- NOTE | 2024-12-20 19:37 | RADIOLOGY REPORT ---
CHEST RADIOGRAPH Indication: congestion Technique: Single frontal view of the chest was obtained COMPARISON: CT CT CHEST ABDOMEN PELVIS on DOS: 01/26/23, DI CHEST,SINGLE VIEW on DOS: 01/26/23 FINDINGS: Lungs and pleural spaces are clear. Cardiac silhouette and domenic are within normal limits. Bones and soft tissues demonstrate no significant abnormality. IMPRESSION: No acute disease.
[2024-12-20 19:47] LABS: CHOL/HDL RATIO 3.6 (0.00-4.99); LDL CHOLESTEROL 100 MG/DL (50-100)
[2024-12-20] MEDS: heparin, porcine 5000 units/ml vial SQ SCH (20:00)
[2024-12-20] MEDS: INSULIN LISPRO 100 UNIT/ML INSULN.PEN MULTI-DOSE SQ SCH (20:23)
[2024-12-20] MEDS ORDERED: CYAN-104 PO (22:14)
[2024-12-20] MEDS ORDERED: LEVO75TA PO (22:14)
[2024-12-20] MEDS ORDERED: LOSA100T58 PO (22:20)
[2024-12-20] MEDS ORDERED: SPIR25TA5 PO (22:20)
[2024-12-20] MEDS ORDERED: EMPA10TA PO (22:20)
[2024-12-20] MEDS ORDERED: FURO20TA4 PO (22:20)
[2024-12-20] MEDS ORDERED: AMLO2.5T2 PO (22:22)
[2024-12-20 22:25] VITALS: BP 156/54; PULSE 83; RESP 14; TEMP 97.2; O2SAT 96
[2024-12-20] MEDS ORDERED: ATOR10TA70 PO (23:00)
[2024-12-21 05:00] VITALS: BP 155/48; PULSE 55; RESP 18; TEMP 98.3; O2SAT 95
[2024-12-21 05:39] LABS: MEAN PLATELET VOLUME 7.5 FL (7.4-10.4); RED CELL DISTRIBUTION WIDTH 14.1 % (11.5-14.5)
[2024-12-21 05:51] LABS: INR 1.0 INR
[2024-12-21 05:55] LABS: CREATININE 2.48 MG/DL (0.40-0.90); TOTAL CARBON DIOXIDE 24.4 MMOL/L (24-32); eCRCL 13 ML/MIN; eGFR 18 ML/MIN
[2024-12-21] MEDS ORDERED: EMPAGLIFLOZIN 10 MG TABLET PO SCH (08:20)
[2024-12-21] MEDS: PERFLUTREN PROTEIN-A MICROSPHR (Optison) 0.22 MG/ML 3ML VIAL IV ONE (08:30)
[2024-12-21] MEDS: INSULIN LISPRO 100 UNIT/ML INSULN.PEN MULTI-DOSE SQ SCH (09:00)
[2024-12-21] MEDS ORDERED: insulin glargine (Lantus) pen - multi-dose SQ SCH (09:22)
[2024-12-21 09:46] VITALS: BP_SYST 150; BP_SYST 155; BP_SYST 157; BP_DIAS 45; BP_DIAS 51; BP_DIAS 53; PULSE 63; PULSE 64; PULSE 74
[2024-12-21 10:00] VITALS: BP 155/51; PULSE 64; RESP 16; TEMP 98.4; O2SAT 95
[2024-12-21] MEDS ORDERED: albuterol 2.5 MG/3 ML nebule NEB ONE (10:25)
--- NOTE | 2024-12-21 10:50 | RADIOLOGY REPORT ---
US ULTRASOUND KIDNEY NON VASC HISTORY: nata COMPARISON: None TECHNIQUE: Transverse and longitudinal grayscale and color doppler images were obtained of the kidneys and bladder. FINDINGS: Right kidney: Size: 7.6 cm Cortical thickness: Decreased Echogenicity: Increased Stones: None Masses: 0.9 cm cyst. Hydronephrosis: None Ureters: Not well visualized. Other: None Left kidney: Size: 9.4 cm Cortical thickness: Decreased Echogenicity: Increased Stones: None Masses: 3.7 cm cyst. Hydronephrosis: None Ureters: Not well visualized. Other: None Bladder: Normal Other: None. IMPRESSION: Echogenic kidneys seen with medical renal disease.
--- NOTE | 2024-12-21 11:55 | CARDIOLOGY REPORT ---
APPROVED REPORT EXAM: Comprehensive 2D, Doppler, and color-flow Echocardiogram. Patient Location: [address] Heart Rate: 70's bpm Rhythm: SINUS Indications CONGESTIVE HEART FAILIRE CABG x3 2001 HYPERTENSION Business Systems Technician: MD Baylee Previous echo: 04/25/22 [facility] EF 65-70%, mLVH, modMR, sLAE, sRAE, RVE, modTR 2D Dimensions RVDd 5.0 cm IVSd 0.9 (0.7-1.1cm) LVDd 4.6 cm PWd 0.9 (0.7-1.1cm) IVSs 1.3 (0.8-1.2cm) LVDs 2.8 (2.5-4.0cm) PWs 1.3 (0.8-1.2cm) LVOT Diameter 1.94 (1.8-2.4cm) LVEF(%) 69.3 (>50%) FS (%) 38.8 % SV 67.3 ml CO 4.7 L/min M-Mode Dimensions Left Atrium(MM) 5.09 (2.5-4.0cm) Aortic Root 3.66 (2.2-3.7cm) Aortic Cusp Exc 1.61 (1.5-2.0cm) Aortic Valve AoV Peak Joshua. 168.2 cm/s AoV VTI 37.5 cm AO Peak GR. 11.3 mmHg AO Mean GR. 6 mmHg LVOT VTI 28.72 cm LVOT Peak Joshua. 124.0 cm/s JENNY(VTI)/BSA 2.26 cm2/m2 JENNY (VTI) 2.26 cm2 AV DI 0.76 % Mitral Valve MV E Velocity 175.8 cm/s MV Peak Gr. 13 mmHg MV DECEL TIME 174 ms MV A Velocity 73.3 cm/s MV PHT 62 ms E/A Ratio 2.4 MVA (PHT) 3.55 cm2 MV VMax 181.3 cm/s Tricuspid Valve TR P. Velocity 455 cm/s RAP ESTIMATE 10 mmHg TR Peak Gr. 83 mmHg RVSP 93 mmHg LEFT VENTRICLE Normal LV size and wall thickness. Overall systolic function is normal. Overall LVEF is 65-70%. RIGHT VENTRICLE RV is moderately dilated with normal function. Estimated PA systolic pressure of 93 mm of mercury ATRIA Left atrium is moderately dilated. AORTIC VALVE Trileaflet AV appears mildly sclerotic without stenosis. No insufficiency. MITRAL VALVE Mild MV annular calcification without stenosis. Moderatee regurgitation. TRICUSPID VALVE TV appears structurally normal with moderate regurgitation. PULMONIC VALVE Normal PV without stenosis, physiologic insufficiency. GREAT VESSELS The aortic root is normal in size. PERICARDIUM Normal pericardium. No effusion. Other Information Study Quality: Adequate Conclusion Overall LVEF is 65-70%. Normal LV size and wall thickness. Overall systolic function is normal. RV is moderately dilated with normal function. Estimated PA systolic pressure of 93 mm of mercury Trileaflet AV appears mildly sclerotic without stenosis. No insufficiency. Mild MV annular calcification without stenosis. Moderatee regurgitation. TV appears structurally normal with moderate regurgitation. Normal PV without stenosis, physiologic insufficiency. Normal pericardium. No effusion.
--- NOTE | 2024-12-21 14:10 | PROGRESS NOTE- Residence ---
Progress Note - Resident Providers to CC Resident Creating Document: DIXIE GIRALDO RES ~ Antibiotic Timeout Antibiotic Ordered?: No Subjective Patient was seen and examined on bedside, she reports that she had black stools because she was consuming iron, and she feels generalized weakness. Objective Vital Signs Date Time Temp Pulse Resp B/P (MAP) Pulse Ox O2 Delivery O2 Flow Rate FiO2 12/21/24 10:00 98.4 64 16 155/51 (85) 95 Room Air 12/20/24 22:25 0.0 Result Diagram: 12/21/2445812/21/24458 General: Pale-appearing elderly female, Awake and Alert, no acute distress. HEENT: Conjunctiva pale, Sclera clear, Mucus Membranes moist. Neck: Supple without masses and tenderness. Resp: Unlabored. Equal breath sounds bilaterally. Heart: Regular rhythm, normal S1 and S2, no rub, murmur or gallop. Abdomen: Soft and non tender no organomegaly. Normal bowel sounds x4 quadrant normoactive. No guarding or rigidity. Extremities: Left lower extremity swelling (chronic), bilateral lower extremity trace edema. Normal range of motion. No cyanosis or clubbing. Musculoskeletal: Normal posture and gait. No joint swelling, deformity or tenderness, full range of motion and strength 5 x 5 in all extremities. 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 Skin: Small Bruises on bilateral upper extremities. Coagulation Studies Laboratory Tests Test 12/21/24 04:59 Prothrombin Time 10.6 SECONDS (9.0-12.0) INR International Normalized Ratio 1.0 INR Coagulation Comments Advance Care Planning Advanced Care plannin - 30 Minutes Plan Plan Generalized weakness Normocytic normochromic anemia secondary to chronic kidney disease Complaints of worsening weakness for the last couple of days Hemoglobin dropped from 8.9 t to 7.1 NS at 75 mL/hour Continue to monitor H&H if hemoglobin less than seven transfuse She had pill endoscopy and colonoscopy done in February 2024, no significant findings noted. Close monitoring of H&H She also had a bone marrow biopsy done in February 2024 which did not show any significant findings. Consulted nephrology recommended erythropoiesis-stimulating agent and IV iron as indicated once volume status and renal function are stabilized. Hyperkalemia likely Secondary to Spironolactone or CKD K 5.4, in view of this received Albuterol. Netting Inspector recommended: Treat hyperkalemia per protocol if levels rise or ECG changes develop, otherwise Lokelma 10 Gm daily. Follow up with CMP. Diabetes type mellitus 2 HbA1c 8.5 Patient states she is very afraid of taking insulin in view of this, started patient on glipizide 10 mg in am and 5 mg in pm Continue monitoring blood glucose. DONNA on CKD likely secondary to renal tubular stasis Baseline creatinine per EMR 1.3-1.9 Creatinine significantly elevated 2.7 Received 500 bolus in the ED NS 75 mL/hour She does have a history of CHF, currently she requires hydration as she has significant DONNA. Ultrasound shows echogenic kidney Follow up with urine lytes Consulted email operations manager recommended to prepare for renal replacement therapy if anuria persists, hyperkalemia worsens, or uremic symptoms develop. Chronic heart failure with diastolic dysfunction not in acute exacerbation ProBNP 3807 Echo shows Overall LVEF is 65-70%,Estimated PA systolic pressure of 93 mm of mercury. She has a chronic left lower extremity swelling since that time she had CABG in 2020 GDMT on hold in view of kidney disease ,Coreg held in view of soft HR. Hypertension Continue amlodipine 2.5 mg daily Started hydralazine 25 mg t.i.d. CodeStatus: DNR Dvt Prophylaxis: Heparin GI Prophylaxis: Pantoprazole 40 mg PO Disposition: We will continue to monitor patient, monitor H&H Date of Service: Dec 21, 2024 Billing Provider: ROBERT PINTO MD Common Visit Codes: [id number] INP/OBS CARE(HIGH) DIXIE GIRALDO, RES Dec 21, 2024 14:09 ROBERT PINTO MD Dec 22, 2024 06:16
[2024-12-21 14:21] LABS: OSMOLALITY 315 MOSM/K (280-300)
--- NOTE | 2024-12-21 15:29 | CONSULTATION REPORT ---
Consult Providers to CC ~ History of Present Illness Reason for Admit\Complaint: DONNA evaluation History of Present Illness 88-year-old woman with a history of heart failure with preserved ejection fraction, hypertension, type 2 diabetes, chronic kidney disease (stage unknown), and coronary artery disease status post-CABG presented to the ED with worsening weakness over the past several days. She denies significant chest pain, increased urination, fevers, chills, nasal congestion, upper respiratory symptoms, palpitations, weight changes, or sputum production. She reports that she typically feels this way when her hemoglobin drops and was concerned she might require a blood transfusion, prompting her visit to the ED. She has had chronic anemia for several years and has undergone multiple tests and evaluations without a clear diagnosis or cause. A bone marrow biopsy in February 2024 was unremarkable. The anemia is suspected to be related to her chronic kidney disease. She previously saw a disaster or damage control specialist but has not had follow-up in the past six years; she has an upcoming appointment with Dr. Rose at the end of the month. Her primary care provider is aware of her CKD but does not know her baseline creatinine. She was started on empagliflozin (Jardiance), after which her creatinine increased and her GFR declined. She underwent EGD and colonoscopy in February 2024, both of which were normal. She does not drink alcohol or smoke, is independent in her activities of daily living but uses a cane for stability, and lives alone. She does not use NSAIDs, has no history of kidney stones, denies hematuria or foamy urine, and has no family history of CKD or dialysis. Allergies: Coded Allergies: amoxicillin (Unverified Allergy, Unknown, 12/20/24) clavulanic acid (Unverified Allergy, Unknown, 12/20/24) levofloxacin (Unverified Allergy, Unknown, 12/20/24) liraglutide (Unverified Allergy, Unknown, 12/20/24) rosiglitazone (Unverified Allergy, Unknown, 12/20/24) saxagliptin (Unverified Allergy, Unknown, 12/20/24) Uncoded Allergies: REPATHA (Allergy, Intermediate, FLUID ON LUNGS, 01/26/23) WAS ADMITTED 04/2022 FOR REPATHA ALLERGY PER PATIENT Home Medications Home Medications Active Ferrous Sulfate 324 Mg (65 Mg Iron) Tablet.dr 1 Tab PO DAILY 30 Days Reported Atorvastatin Calcium 10 Mg Tablet 2 Tab PO Norvasc* (Amlodipine Besylate) 2.5 Mg Tablet 1 Tab PO DAILY 30 Days Furosemide 20 Mg Tablet 1 Tab PO DAILY Jardiance (Empagliflozin) 10 Mg Tablet 1 Tab PO DAILY Spironolactone 25 Mg Tablet 0.5 Tab PO DAILY Synthroid* (Levothyroxine Sodium) 75 Mcg Tablet 1 Tab PO DAILY 30 Days Vitamin B-12 (Cyanocobalamin) 1,000 Mcg Tablet 1 Tab PO Q72H Carvedilol 3.125 Mg Tablet 1 Tab PO BID Losartan Potassium 25 Mg Tablet 1 Tab PO HS Vitamin D3 (Cholecalciferol (Vitamin D3)) 50 Mcg Tablet 1 Tab PO DAILY Past Medical History Past Medical History Reviewed Past Surgical History Surgical History Comment Reviewed Family History Family History: FH: HTN (hypertension) FH: diabetes mellitus Past Social History Social History Comment Reviewed Health Maintenance Health Maintenance Reviewed ROS ROS All other systems negative report Exam Vitals: Vital Signs Date Time Temp Pulse Resp B/P (MAP) Pulse Ox O2 Delivery O2 Flow Rate FiO2 12/21/24 10:00 98.4 64 16 155/51 (85) 95 Room Air 12/21/24 08:00 0.0 Alert RRR w/o murmur, no JVD CTAB, no wheezes +BS, NT No edema Diagnostic Data Last Recorded Lab Results: 12/21/2445812/21/24458 Diagnostic Data: I & O 12/21/24 07:00 Intake Total 200 ml Balance 200 ml Intake Oral 200 ml # Voids 1 Laboratory Tests Test 12/21/24 04:59 Prothrombin Time 10.6 SECONDS (9.0-12.0) INR International Normalized Ratio 1.0 INR Coagulation Comments Additional Plan This patients presentation is most consistent with acute on chronic kidney injury in the setting of advanced CKD, likely exacerbated by volume depletion and recent SGLT2 inhibitor use, with severe anemia of CKD and associated electrolyte disturbances. Management should focus on supportive care, close monitoring, and preparation for renal replacement therapy if indicated. Acute on chronic kidney injury, most likely superimposed on advanced chronic kidney disease The acute component is likely multifactorial, including prerenal azotemia from poor oral intake and possible volume depletion, as well as potential nephrotoxicity from empagliflozin. The chronic component is supported by bilaterally small, echogenic kidneys and a history of progressive renal dysfunction. There is no evidence of post-renal obstruction on imaging, and urinalysis does not suggest active glomerulonephritis or interstitial nephritis (no significant hematuria, pyuria, or casts). Discontinue empagliflozin, spironolactone and other nephrotoxic agents. Assess and optimize volume status; consider cautious fluid challenge if no evidence of volume overload. Monitor strict input/output, daily weights, and serial renal function. Urine electrolytes, urea, creatinine to hep us make more accurate fluid management choices. Hold or adjust renally cleared medications. Prepare for renal replacement therapy if anuria persists, hyperkalemia worsens, or uremic symptoms develop. 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 There is no evidence of acute blood loss, hemolysis, or marrow failure. Transfuse if symptomatic or hemoglobin <78 g/dL. Initiate or optimize erythropoiesis-stimulating agent and IV iron as indicated, once volume status and renal function are stabilized. Monitor for ongoing blood loss and trend hemoglobin. Electrolyte abnormalities, including hyperkalemia Potassium is elevated at 5.4, with risk of further increase given oliguria/anuria. Monitor potassium closely; initiate dietary potassium restriction. Treat hyperkalemia per protocol if levels rise or ECG changes develop, otherwise Lokelma 10 Gm daily. Avoid potassium-sparing medications and adjust other electrolytes as needed. Chronic medical renal disease Bilaterally small, echogenic kidneys on ultrasound are consistent with advanced CKD. Continue to avoid nephrotoxins and optimize blood pressure control. Monitor for complications of CKD, including mineral and bone disorder, acidosis, and volume overload. Heart failure with preserved ejection fraction No evidence of acute decompensation; volume status appears stable. Continue guideline-directed medical therapy as tolerated, with attention to renal dosing. Monitor for signs of volume overload, especially if fluids are administered. EAN NOLASCO III DO Dec 21, 2024 15:29
[2024-12-21 18:00] VITALS: BP 154/48; PULSE 74; RESP 16; TEMP 98.4; O2SAT 94
[2024-12-21 20:00] VITALS: BP_SYST 158; BP_SYST 164; BP_SYST 169; BP_DIAS 50; BP_DIAS 54; BP_DIAS 55; PULSE 74; PULSE 75; PULSE 80; RESP 16; O2SAT 94
[2024-12-21] MEDS: SODIUM ZIRCONIUM CYCLOSILICATE 10 GM POWD.PACK PO SCH (21:49)
[2024-12-21 22:00] VITALS: BP 158/54; PULSE 74; RESP 21; TEMP 98.4; O2SAT 92
[2024-12-22] VITALS: BP 146/47; PULSE 65; RESP 22
[2024-12-22 06:00] VITALS: BP 136/46; PULSE 54; RESP 12; TEMP 96.7; O2SAT 96
[2024-12-22 06:52] LABS: MEAN PLATELET VOLUME 7.6 FL (7.4-10.4); RED CELL DISTRIBUTION WIDTH 14.5 % (11.5-14.5)
[2024-12-22 07:22] LABS: CREATININE 2.38 MG/DL (0.40-0.90); TOTAL CARBON DIOXIDE 20.5 MMOL/L (24-32); eCRCL 13 ML/MIN; eGFR 19 ML/MIN
[2024-12-22 07:40] VITALS: BP_SYST 157; BP_SYST 158; BP_SYST 159; BP_DIAS 37; BP_DIAS 45; BP_DIAS 47; PULSE 56; PULSE 70; PULSE 76
[2024-12-22] MEDS: levoTHYROXINE 75mcg tablet PO SCH (08:24)
[2024-12-22 09:21] LABS: % IRON SATURATION 14 % (11-46)
[2024-12-22 10:00] VITALS: BP 157/37; PULSE 61; RESP 13; TEMP 97.4; O2SAT 96
[2024-12-22 10:12] VITALS: RESP 18; O2SAT 96
--- NOTE | 2024-12-22 10:34 | HISTORY AND PHYSICAL-Residence ---
History & Physical Providers to CC Resident Creating Document: EBONY ROBERTSON, RES CC: TELMA HAUSER MD ~ History of Present Illness Primary Medical Doctor: MAGALI Reason for Admit\Complaint: Generalized weakness History of Present Illness An 88-year-old female with PMH of HFpEF, HTN, CKD, CAD s/p CABG presented to the ED in view of worsening weakness for the last few days. She states that she has generalized weakness, fatigue all through the day. She has observed that she feels this way whenever hemo her hemoglobin drops to the point needing blood transfusion. Therefore she presented to the ED in suspicion for the requirement of blood transfusion. Patient has chronic anemia has been evaluated for the last two years with no significant diagnosis. (bone marrow biopsy in February 2024 was unremarkable). She sees Dr. Hauser for Cardiology, therefore the patient is being followed in the hospital. Allergies: Coded Allergies: amoxicillin (Unverified Allergy, Unknown, 12/20/24) clavulanic acid (Unverified Allergy, Unknown, 12/20/24) levofloxacin (Unverified Allergy, Unknown, 12/20/24) liraglutide (Unverified Allergy, Unknown, 12/20/24) rosiglitazone (Unverified Allergy, Unknown, 12/20/24) saxagliptin (Unverified Allergy, Unknown, 12/20/24) Uncoded Allergies: REPATHA (Allergy, Intermediate, FLUID ON LUNGS, 01/26/23) WAS ADMITTED 04/2022 FOR REPATHA ALLERGY PER PATIENT Home Medications Home Medications Active Ferrous Sulfate 324 Mg (65 Mg Iron) Tablet.dr 1 Tab PO DAILY 30 Days Reported Atorvastatin Calcium 10 Mg Tablet 2 Tab PO Norvasc* (Amlodipine Besylate) 2.5 Mg Tablet 1 Tab PO DAILY 30 Days Furosemide 20 Mg Tablet 1 Tab PO DAILY Jardiance (Empagliflozin) 10 Mg Tablet 1 Tab PO DAILY Spironolactone 25 Mg Tablet 0.5 Tab PO DAILY Synthroid* (Levothyroxine Sodium) 75 Mcg Tablet 1 Tab PO DAILY 30 Days Vitamin B-12 (Cyanocobalamin) 1,000 Mcg Tablet 1 Tab PO Q72H Carvedilol 3.125 Mg Tablet 1 Tab PO BID Losartan Potassium 25 Mg Tablet 1 Tab PO HS Vitamin D3 (Cholecalciferol (Vitamin D3)) 50 Mcg Tablet 1 Tab PO DAILY Past Medical History Past Medical History Hypertension Diabetes Chronic kidney disease Heart failure with preserved EF CAD Thyroid disorder Past Surgical History Surgical History Comment Right knee surgery CABG x3 Cholecystectomy Cataract surgeries Family History Family History: FH: HTN (hypertension) FH: diabetes mellitus Past Social History Social History Comment Lives at home with family Does not consume tobacco alcohol or illicit drug abuse Alcohol Use: None Drug Use: None Lives with: Family Lives In: Home Occupation: retired ROS ROS Constitutional: Generalized weakness, fatigue, No fever, chills, dizziness, weight gain or loss Eyes: No pain, erythema, discharge, blurring of vision ENT: No sore throat, epistaxis, tinnitus Cardiovascular: No Shortness of breath. Chest pressure, chest discomfort, palpitations, syncope, lower extremity edema, paroxysmal nocturnal dyspnea Respiratory: No Shortness of breath and cough present, No hemoptysis Gastrointestinal: Normal appetite. No nausea, vomiting, diarrhea, constipation, hematemesis, abdominal pain, bloating, melena or fresh blood Musculoskeletal: No chronmic edema. Integumentary: No change in skin, hair, nails. No swelling, bruising, abrasions Neurologic: No headache, neck pain, numbness or tingling of the extremities, weakness Psychiatric: No delusions, depression, loss of interest in normal activity or change in sleep pattern, hallucinations, suicidal ideations Endocrine: No fatigue, weakness, polydipsia, polyuria, change in appetite, heat or cold intolerance, sweating, dry skin Exam Vitals: Vital Signs Date Time Temp Pulse Resp B/P (MAP) Pulse Ox O2 Delivery O2 Flow Rate FiO2 12/22/24 08:20 54 12/22/24 06:00 96.7 12 136/46 (76) 96 Room Air 12/21/24 08:00 0.0 General: General: Alert, awake, oriented, not in acute distress HEENT: Pallor present PERRLA, no icterus, lymphadenopathy, carotid bruit Respiratory system: Bilateral vesicular breath sounds heard, no adventitious breath sounds CVS: Linear CABG scar present, S1-S2 heard, grade 3/6 HSM present in the mitral area with radiation to the tricuspid area GI: Soft, nontender, no organomegaly, no guarding/rigidity, bowel sounds present Neuro: No focal neurological deficits present Mental status exam: alert and consciousness, orientation, memory, speech - Cranial nerve test: Cranial nerves 2-12 intact - Motor system: Nutrition, Tone 3+, Power 5/5, no involuntary movements - Sensory system: Intact - Reflex testing: Biceps, triceps and knee reflexes 2+ - Cerebellar: Normal Extremities: No edema cyanosis clubbing/deformities Skin: Warm and dry Diagnostic Data Last Recorded Lab Results: 12/22/2452012/22/24520 Diagnostic Data: Laboratory Tests Test 12/21/24 04:59 Prothrombin Time 10.6 SECONDS (9.0-12.0) INR International Normalized Ratio 1.0 INR Coagulation Comments Additional Plan Assessment: An 88-year-old female with PMH of HFpEF, HTN, CKD presented to the ED in view of generalized weakness for the last couple of days. Patient sees Dr. Hauser as outpatient. We will be following the patient from the cardiac standpoint. Plan: Generalized weakness 2/2 normochromic normocytic anemia, age-related debiliation Can not exclude pulmonary hypertension Recommend pulmonology consult in view of elevated pulmonary hypertension (increase in RVSP from 60-90 mmHg over a period of) Continue management per hospitalist HFpEF, not in acute exacerbation Continue optimization GDM T CAD s/p CABG Continue aspirin 81 mg and GDMT HTN Continue home meds Code status: DNR Diet: Heart healthy DVT prophylaxis: Heparin Disposition: Cardiology team we will continue to follow up with the patient Ebony Robertson MD Internal Medicine, PGY 2 EBONY ROBERTSON, RES Dec 22, 2024 10:34
[2024-12-22 11:26] LABS: OCCULT BLOOD STOOL POSITIVE (Neg)
[2024-12-22] MEDS: EPOETIN ALFA-EPBX 20,000 UNIT/ML 1 ML MDV SQ ONE (12:10)
[2024-12-22] MEDS ORDERED: HYDR25TA90 PO (15:23)
[2024-12-22] MEDS ORDERED: AMLO5TAB4 PO (15:23)
[2024-12-22] MEDS ORDERED: GLIP5TAB23 PO (15:30)
[2024-12-22] MEDS ORDERED: PANT-47 PO (15:36)
[2024-12-22 16:29] LABS: OSMOLALITY UA 445 MOSM/K (50-1400)
[2024-12-22 16:52] LABS: CREATININE,URINE RANDOM 51.0 MG/DL; TOTAL PROTEIN,URINE RANDOM 93.0 MG/DL; UA PROTEIN/CREATININE RATIO 1.82 mg/mg Cr (0-0.16); UA UREA RANDOM 584.0 MG/DL; URINE AMPHETAMINE SCREEN NEGATIVE (Neg); URINE BARBITUATE SCREEN NEGATIVE (Neg); URINE BENZODIAZEPINES SCREEN NEGATIVE (Neg); URINE CANNABINOID SCREEN NEGATIVE (Neg); URINE COCAINE SCREEN NEGATIVE (Neg); URINE METHADONE SCREEN NEGATIVE (Neg); URINE OPIATE SCREEN NEGATIVE (Neg); URINE PHENCYCLIDINE SCREEN NEGATIVE (Neg)
--- NOTE | 2024-12-22 17:03 | CONSULTATION REPORT - RESIDENT ---
Consult Providers to CC Resident Creating Document: ANEUDY RAJAN, RES CC: TELMA HAUSER MD History of Present Illness Reason for Admit\Complaint: Generalized weakness History of Present Illness An 88-year-old female with PMH of HFpEF, HTN, CKD, CAD s/p CABG presented to the ED in view of worsening weakness for the last few days. She states that she has generalized weakness, fatigue all through the day. She has observed that she feels this way whenever hemo her hemoglobin drops to the point needing blood transfusion. Therefore she presented to the ED in suspicion for the requirement of blood transfusion. Patient has chronic anemia has been evaluated for the last two years with no significant diagnosis. (bone marrow biopsy in February 2024 was unremarkable). She sees Dr. Hauser for Cardiology, therefore the patient is being followed in the hospital. Allergies: Coded Allergies: amoxicillin (Unverified Allergy, Unknown, 12/20/24) clavulanic acid (Unverified Allergy, Unknown, 12/20/24) levofloxacin (Unverified Allergy, Unknown, 12/20/24) liraglutide (Unverified Allergy, Unknown, 12/20/24) rosiglitazone (Unverified Allergy, Unknown, 12/20/24) saxagliptin (Unverified Allergy, Unknown, 12/20/24) Uncoded Allergies: REPATHA (Allergy, Intermediate, FLUID ON LUNGS, 01/26/23) WAS ADMITTED 04/2022 FOR REPATHA ALLERGY PER PATIENT Home Medications Home Medications Active PROTONIX tablet (Pantoprazole Sodium) 40 Mg Tablet.dr 40 Mg PO DAILY 30 Days Glipizide 5 Mg Tablet 5 Mg PO BKF TAKE 10 MG(2 TAB) IN AM AND 5 MG (1 TAB) IN PM Apresoline* (Hydralazine HCl) 25 Mg Tablet 25 Mg PO Q8H Norvasc (Amlodipine Besylate) 5 Mg Tablet 1 Tab PO DAILY 30 Days Ferrous Sulfate 324 Mg (65 Mg Iron) Tablet.dr 1 Tab PO DAILY 30 Days Reported Atorvastatin Calcium 10 Mg Tablet 2 Tab PO Synthroid* (Levothyroxine Sodium) 75 Mcg Tablet 1 Tab PO DAILY 30 Days Vitamin B-12 (Cyanocobalamin) 1,000 Mcg Tablet 1 Tab PO Q72H Vitamin D3 (Cholecalciferol (Vitamin D3)) 50 Mcg Tablet 1 Tab PO DAILY Past Medical History Past Medical History Hypertension Diabetes Chronic kidney disease Heart failure with preserved EF CAD Thyroid disorder Past Surgical History Surgical History Comment Right knee surgery CABG x3 Cholecystectomy Cataract surgeries Family History Family History: FH: HTN (hypertension) FH: diabetes mellitus Past Social History Social History Comment Lives at home with family Does not consume tobacco alcohol or illicit drug abuse ROS ROS Constitutional: Generalized weakness, fatigue, No fever, chills, dizziness, weight gain or loss Eyes: No pain, erythema, discharge, blurring of vision ENT: No sore throat, epistaxis, tinnitus Cardiovascular: No Shortness of breath. Chest pressure, chest discomfort, palpitations, syncope, lower extremity edema, paroxysmal nocturnal dyspnea Respiratory: No Shortness of breath and cough present, No hemoptysis Gastrointestinal: Normal appetite. No nausea, vomiting, diarrhea, constipation, hematemesis, abdominal pain, bloating, melena or fresh blood Musculoskeletal: No chronmic edema. Integumentary: No change in skin, hair, nails. No swelling, bruising, abrasions Neurologic: No headache, neck pain, numbness or tingling of the extremities, weakness Psychiatric: No delusions, depression, loss of interest in normal activity or change in sleep pattern, hallucinations, suicidal ideations Endocrine: No fatigue, weakness, polydipsia, polyuria, change in appetite, heat or cold intolerance, sweating, dry skin Exam Vitals: Vital Signs Date Time Temp Pulse Resp B/P (MAP) Pulse Ox O2 Delivery O2 Flow Rate FiO2 12/22/24 10:12 18 96 Room Air 12/22/24 10:00 97.4 61 157/37 (77) 12/22/24 07:40 0.0 General: General: Alert, awake, oriented, not in acute distress HEENT: Pallor present PERRLA, no icterus, lymphadenopathy, carotid bruit Respiratory system: Bilateral vesicular breath sounds heard, no adventitious breath sounds CVS: Linear CABG scar present, S1-S2 heard, grade 3/6 HSM present in the mitral area with radiation to the tricuspid area GI: Soft, nontender, no organomegaly, no guarding/rigidity, bowel sounds present Neuro: No focal neurological deficits present Mental status exam: alert and consciousness, orientation, memory, speech - Cranial nerve test: Cranial nerves 2-12 intact - Motor system: Nutrition, Tone 3+, Power 5/5, no involuntary movements - Sensory system: Intact - Reflex testing: Biceps, triceps and knee reflexes 2+ - Cerebellar: Normal Extremities: No edema cyanosis clubbing/deformities Skin: Warm and dry Diagnostic Data Last Recorded Lab Results: 12/22/2452012/22/24520 Diagnostic Data: Laboratory Tests Test 12/21/24 04:59 Prothrombin Time 10.6 SECONDS (9.0-12.0) INR International Normalized Ratio 1.0 INR Coagulation Comments Additional Plan Assessment: An 88-year-old female with PMH of HFpEF, HTN, CKD presented to the ED in view of generalized weakness for the last couple of days. Patient sees Dr. Hauser as outpatient. We will be following the patient from the cardiac standpoint. Plan: Generalized weakness 2/2 normochromic normocytic anemia, age-related debiliation Can not exclude pulmonary hypertension Recommend pulmonology consult in view of elevated pulmonary hypertension (increase in RVSP from 60-90 mmHg over a period of) Continue management per hospitalist HFpEF, not in acute exacerbation Continue optimization GDM T CAD s/p CABG Continue aspirin 81 mg and GDMT HTN Continue home meds Code status: DNR Diet: Heart healthy DVT prophylaxis: Heparin Disposition: Cardiology team we will continue to follow up with the patient Aneudy Rajan MD Internal Medicine, PGY 2 Patient seen and examined by Dr. Valerio ZEPEDA. Overall patient doing well. Echo finding including severe pulmonary hypertension discussed with patient. Recommend follow up with regulatory agency director. Sepsis Screening Reassessment Date: Dec 23, 2024 Date of Service: Dec 22, 2024 Billing Provider: TELMA HAUSER MD, SIVA, RES Dec 22, 2024 17:03 TELMA HAUSER MD Dec 23, 2024 17:09
--- NOTE | 2024-12-22 17:17 | PROGRESS NOTE ---
Progress Note Dictate Providers to CC ~ Progress Note: 88-year-old woman with a history of heart failure with preserved ejection fraction, hypertension, type 2 diabetes, chronic kidney disease (stage unknown), and coronary artery disease status post-CABG presented to the ED with worsening weakness over the past several days. She denies significant chest pain, increased urination, fevers, chills, nasal congestion, upper respiratory symptoms, palpitations, weight changes, or sputum production. She reports that she typically feels this way when her hemoglobin drops and was concerned she might require a blood transfusion, prompting her visit to the ED. She has had chronic anemia for several years and has undergone multiple tests and evaluations without a clear diagnosis or cause. A bone marrow biopsy in February 2024 was unremarkable. The anemia is suspected to be related to her chronic kidney disease. She previously saw a ballpoint pen cartridge tester but has not had follow-up in the past six years; she has an upcoming appointment with Dr. Rose at the end of the month. Her primary care provider is aware of her CKD but does not know her baseline creatinine. She was started on empagliflozin (Jardiance), after which her creatinine increased and her GFR declined. She underwent EGD and colonoscopy in February 2024, both of which were normal. She does not drink alcohol or smoke, is independent in her activities of daily living but uses a cane for stability, and lives alone. She does not use NSAIDs, has no history of kidney stones, denies hematuria or foamy urine, and has no family history of CKD or dialysis. Antibiotic Ordered?: N/A Subjective Subjective Doing well this morning, no specific compliants, nurses report no new events since last evaluation. Objective Vitals Vital Signs Date Time Temp Pulse Resp B/P (MAP) Pulse Ox O2 Delivery O2 Flow Rate FiO2 12/22/24 10:12 18 96 Room Air 12/22/24 10:00 97.4 61 157/37 (77) 12/22/24 07:40 0.0 Alert RRR w/o murmur, no JVD CTAB, no wheezes +BS, NT No edema Lab Results: 12/22/24 0512/22/24 05 Coagulation Studies Laboratory Tests Test 12/21/24 04:59 Prothrombin Time 10.6 SECONDS (9.0-12.0) INR International Normalized Ratio 1.0 INR Coagulation Comments Other Results I & O 12/22/24 07:00 Intake Total 2465 ml Output Total 600 ml Balance 1865 ml Intake Oral 1640 ml IV Total 825 ml Output Urine Total 600 ml # Voids 4 Problem\Assessment\Plan Additional Plan This patients presentation is most consistent with acute on chronic kidney injury in the setting of advanced CKD, likely exacerbated by volume depletion and recent SGLT2 inhibitor use, with severe anemia of CKD and associated electrolyte disturbances. Management should focus on supportive care, close monitoring, and preparation for renal replacement therapy if indicated. Acute on chronic kidney injury, most likely superimposed on advanced chronic kidney disease, Improving The acute component is likely multifactorial, including prerenal azotemia from poor oral intake and possible volume depletion, as well as potential nephrotoxicity from empagliflozin. The chronic component is supported by bilaterally small, echogenic kidneys and a history of progressive renal dysfunction. There is no evidence of post-renal obstruction on imaging, and urinalysis does not suggest active glomerulonephritis or interstitial nephritis (no significant hematuria, pyuria, or casts). Discontinue empagliflozin, spironolactone and other nephrotoxic agents. Assess and optimize volume status; consider cautious fluid challenge if no evidence of volume overload. Monitor strict input/output, daily weights, and serial renal function. Urine electrolytes, urea, creatinine to hep us make more accurate fluid management choices, FeNa 2.2, FeUr 41 consistent with intrinsic ATN. Hold or adjust renally cleared medications. Prepare for renal replacement therapy if anuria develops (UOP 600 mL), hyperkalemia worsens, or uremic symptoms develop. 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 There is no evidence of acute blood loss, hemolysis, or marrow failure. Transfuse if symptomatic or hemoglobin <78 g/dL. Initiate or optimize erythropoiesis-stimulating agent and IV iron as indicated, once volume status and renal function are stabilized. Erythropoetin 10K units SQ 3 times weekly. Monitor for ongoing blood loss and trend hemoglobin. Electrolyte abnormalities, including hyperkalemia Potassium is elevated at 5.4, with risk of further increase given oliguria/anuria. Monitor potassium closely; initiate dietary potassium restriction. Treat hyperkalemia per protocol if levels rise or ECG changes develop, continue Lokelma 10 Gm daily. Avoid potassium-sparing medications and adjust other electrolytes as needed. Chronic medical renal disease Bilaterally small, echogenic kidneys on ultrasound are consistent with advanced CKD. Continue to avoid nephrotoxins and optimize blood pressure control. Monitor for complications of CKD, including mineral and bone disorder, acidosis, and volume overload. Heart failure with preserved ejection fraction No evidence of acute decompensation; volume status appears stable. Continue guideline-directed medical therapy as tolerated, with attention to renal dosing. Monitor for signs of volume overload, especially if fluids are administered. EAN NOLASCO III DO Dec 22, 2024 17:17
[2024-12-22 17:22] VITALS: BP_SYST 171; PULSE 56
--- NOTE | 2024-12-22 18:02 | DISCHARGE SUMMARY-Residence ---
Discharge Summary Providers to CC Resident Creating Document: MINA NUNEZ RES ~ Discharge Summary Admission Diagnosis: DONNA, WEAKNESS, ANEMIA Hospital Course DATE OF ADMISSION: 12/20/2024 DATE OF DISCHARGE: 12/22/2024 Hospital course same as mentioned discharge summary. Discharge Diagnosis\Comment: DONNA on CKD stage III likely multifactorial age, CKD, diabetes, and acute tubular necrosis (baseline creatinine 1.3-1.9) Generalized weakness Normocytic normochromic anemia likely secondary to multifactorial reasons (age, CKD, diabetes) Age-related physical debility Hyponatremia-resolved Hyperkalemia-resolved (was using Aldactone will be secondary to that) Diabetes type 2 , A1c 8.5 Hypertension Chronic heart failure with preserved EF 65-70% RVSP 93, elevated right heart p ressures: can not exclude pulmonary hypertension, heart failure not in exacerbation Operations\Procedures: None Consultants: Dr. Mead wind energy mechanic Complications: None Condition on DC: Stable New Medications: Amlodipine Besylate (Norvasc) 5 Mg Tablet 1 TAB PO DAILY for 30 Days, #30 TAB 0 Refills Pantoprazole Sodium (PROTONIX tablet) 40 Mg Tablet.dr 40 MG PO DAILY for 30 Days, #30 TAB.SR Glipizide (Glipizide) 5 Mg Tablet 5 MG PO BKF, #90 TAB TAKE 10 MG(2 TAB) IN AM AND 5 MG (1 TAB) IN PM Hydralazine Hcl* (Apresoline*) 25 Mg Tablet 25 MG PO Q8H, #90 TAB Continued Medications: Atorvastatin Calcium (Atorvastatin Calcium) 10 Mg Tablet 2 TAB PO Cholecalciferol (Vitamin D3) (Vitamin D3) 50 Mcg Tablet 1 TAB PO DAILY Cyanocobalamin (Vitamin B-12) 1,000 Mcg Tablet 1 TAB PO Q72H Ferrous Sulfate (Ferrous Sulfate) 324 Mg (65 Mg Iron) Tablet.dr 1 TAB PO DAILY for 30 Days, #30 TAB 0 Refills Levothyroxine Sodium* (Synthroid*) 75 Mcg Tablet 1 TAB PO DAILY for 30 Days, #30 TAB Discontinued Medications: Amlodipine* (Norvasc*) 2.5 Mg Tablet 1 TAB PO DAILY for 30 Days, #30 TAB Carvedilol (Carvedilol) 3.125 Mg Tablet 1 TAB PO BID Empagliflozin (Jardiance) 10 Mg Tablet 1 TAB PO DAILY Furosemide (Furosemide) 20 Mg Tablet 1 TAB PO DAILY Losartan Potassium (Losartan Potassium) 25 Mg Tablet 1 TAB PO HS Spironolactone (Spironolactone) 25 Mg Tablet 0.5 TAB PO DAILY Discharge Summary: As per HPI: 88-year-old female with history of heart failure with preserved EF, hypertension, diabetes, chronic kidney disease, CAD status post CABG presented to the ED with chief complaints of worsening weakness for the last couple of days. Denies significant chest pains, diaphoresis, fevers/chills, nasal congestion, expectoration, palpitations, or weight loss/weight gain. She states that she feels this way whenever her hemoglobin drops and she was concerned that she might require blood transfusion hence she came to the ED. She has been having chronic anemia for the past two years had multiple tests and evaluations done with no significant diagnosis or cause behind her anemia. She also had a bone marrow biopsy done in February 2024 which did not show any significant findings. They were concerned that it was CKD that was the cause of her anemia. She used to see a wind energy mechanic in the past, but has not seen one in the last six years, has an appointment with Dr. Rose at the end of this month. She has a primary care provider at [facility]. She is aware about her CKD but does not remember her baseline creatinine. States she was started on Jardiance and since her creatinine has been down hill. She is able to make urine. She does not have symptoms of UTI like burning, urgency frequency or lower abdominal pain. She had a blood draw on Sunday for her box maker her hemoglobin was 10, today it is 8.6. She does not have hematemesis or melena. She does take iron supplementation. She had EGD and colonoscopy done in February 2024, normal results. She does not drink or smoke. Is independent in daily activities uses a cane for walking and lives by herself. She does take aspirin 81 for history of CAD. Does not use NSAIDs like ibuprofen Motrin and Aleve. She has a coldfusion Dr. Johnson. Discussed advanced care directives and she wishes to be DNR. Hospital course: Further evaluation her H&H was 8.926.9 and MCV 93. She was hyponatremic with sodium of 131 and she had hyperkalemia with a potassium 5.4. She did not have any signs or symptoms of infection lactic acid procalcitonin were within normal limit. Urine toxicology was negative. She was given 500 L bolus in the ED and then continued aggressive fluid resuscitation with IV fluids NS at 100 mL/hour. H&H monitored and did not have any active signs of bleeding. She did have an EGD and colonoscopy done in February 2024 with no significant findings noted. She had a significantly elevated creatinine 2.7 baseline cre atinine per EMR 1.3-1.9. Continued aggressive fluid resuscitation. Nephrology was consulted who were following the patient. Renal ultrasound was done which showed findings concerning for chronic kidney disease: Bilaterally small echogenic kidneys. No evidence of post renal obstruction. UA did not suggest active glomerulonephritis or interstitial nephritis. We discontinued her home medications Jardiance spironolactone and other nephrotoxic agents. Optimized her volume status. Urine electrolytes and urine spot studies were ordered. DONNA was Likely multifactorial secondary to diabetes, age, CKD, prerenal azotemia. She had an elevated BNP 3807 but was not in exacerbation. Echo was done which showed an EF of 65-70% and RVSP of 93. She is unable to tolerate goal-directed GDMT because of kidney function. She does have hypertension and was on multiple medications at home, discontinued Coreg due to bradycardia, losartan and spironolactone due to DONNA. Increased the dose of amlodipine to 5 daily and started hydralazine 25 p.o. Q8. She also has a history of diabetes A1c is 8.4 she says that she is super sensitive to insulin and did not want to take it hence we change her home medication increase glipizide to 10 mg in a.m. and 5 mg in p.m., she has been controlled well with the above regimen. Echo was done which showed significantly elevated right heart pressures 93. Recommended that she follows up with outpatient health technician hearing for elevated right heart pressure as there was a concern of pulmonary hypertension. On telemetry she was AFib and bradycardic, she did not have any symptoms of headaches dizziness chest pain or shortness of breath. We stopped her medication Coreg in view of low heart rate (lowest is 53 without being on a beta kiya). Have not started anticoagulation with Eliquis or aspirin at this time because of low hemoglobin and hematocrit. Recommended that she follows up with Dr. Johnson her coldfusion outpatient regarding anticoagulation. She did have a stool occult that was positive, she did not have any active signs of bleeding, her drop in hemoglobin could have been dilution (8.9-7.6). Recommended that she takes Protonix 40 daily for at least a month and then repeat labs in a week and follow up with primary care to see GI for EGD outpatient basis. Her coldfusion Dr. Johnson has seen her while she was here in the hospital, recommended that she sees a health technician hearing for elevated right heart pressures. He worked with physical therapy and has been cleared for discharge. She has home independent and we will be discharged home with home health. Her hospital course is uncomplicated she is hemodynamically stable on the day of discharge and her physical exam is as follows: Vital Signs Date Time Temp Pulse Resp B/P (MAP) Pulse Ox O2 Delivery O2 Flow Rate FiO2 12/22/24 17:22 56 12/22/24 10:12 18 96 Room Air 12/22/24 10:00 97.4 157/37 (77) 12/22/24 07:40 0.0 General: Pale-appearing elderly female, Awake and Alert, no acute distress. HEENT: Conjunctiva pale, Sclera clear, Mucus Membranes moist. Neck: Supple without masses and tenderness. Resp: Unlabored. Equal breath sounds bilaterally. Heart: Regular rhythm, normal S1 and S2, no rub, murmur or gallop. Abdomen: Soft and non tender no organomegaly. Normal bowel sounds x4 quadrant normoactive. No guarding or rigidity. Extremities: Left lower extremity swelling (chronic), bilateral lower extremity trace edema. Normal range of motion. No cyanosis or clubbing. Musculoskeletal: Normal posture and gait. No joint swelling, deformity or tenderness, full range of motion and strength 5 x 5 in all extremities. [employer]: No gross motor or sensory abnormalities. Skin: Small Bruises on bilateral upper extremities. Discharge medications can be found above. Patient is being discharged with the following advice: WE HAVE STOPPED THE FOLLOWING MEDS: COREG YOU HAVE BEEN HAVING LOW HEART RATE. JARDIANCE, LASIX LOSARTAN AND ALDACTONE THEY EFFECT THE KIDNEY FUCNTION. REPEAT LABS CBC BMP IN A WEEK AND FOLLOW UP WITH PCP and DR ROSE [employer], RESUME THE ABOVE MEDS IF YOUR CREATININE PERMITS. CHNAGED AMLODIPINE TO 5 MG AND ADDED HYDRALAZINE FOR YOUR BP. INCREASED GLIPIZIDE TO 10 MG IN THE AM AND 5 MG IN PM DAILY. RECOMMENDED TO GET A1C AND ADJUST THE DM MEDS IF YOUR SUGARS CONTINUE TO REMAIN HIGH, CURRENTLY THEY ARE WELL CONTROLLED WITH THE ABOVE MENTIONED REGIMEN. CONTINUE IRON SUPPLEMENTATION. YOUR RIGHT HEART PRESSURES HAVE BEEN ELEVATED IT IS RECOMMENDED THAT YOU SEE A AIR BAG STRIPPER DR ACEVES TO GET FURTHER EVALUATION ABOUT YOUR RIGHT HEART PRESSURES. OUR CM WILL SEND A REFERRAL TO DR PRADO OFFICE AND THEY WILL CONTACT YOU, IF YOU DO NOT HEAR FROM THEM THEN CALL THEIR OFFICE AND MAKE AN APPOINTMENT. YOUR HB HAS BEEN LOW, BUT YOU DO NOT HAVE ACTIVE SIGNS OF BLEEDING. REPEAT HEMOGLOBIN CHECK IN A WEEK AND GET A REFERRAL TO SEE GI FOR POSSIBLE EGD. WE HAVE STARTED YOU ON PROTONOX 40 MG DAILY. IF CONDITION WORSENS CALL 911 OR GO TO THE NEAREST ER IMMEDIATELY. DR ACEVES CONTACT OFFICE [address] [facility] [address], Imaging Echo: Conclusion Overall LVEF is 65-70%. Normal LV size and wall thickness. Overall systolic function is normal. RV is moderately dilated with normal function. Estimated PA systolic pressure of 93 mm of mercury Trileaflet AV appears mildly sclerotic without stenosis. No insufficiency. Mild MV annular calcification without stenosis. Moderatee regurgitation. TV appears structurally normal with moderate regurgitation. Normal PV without stenosis, physiologic insufficiency. Normal pericardium. No effusion. Renal Ultrasound IMPRESSION: Echogenic kidneys seen with medical renal disease. Chest X-ray: IMPRESSION: No acute disease. Laboratory Tests Test 12/20/24 20:14 12/20/24 21:34 12/21/24 04:59 12/21/24 07:19 Glucometer 180 mg/dl 146 mg/dl Erythrocyte Sedimentation Rate 57 MM/HR White Blood Count 7.7 X10'3 Red Blood Count 2.45 X10'6 Hemoglobin 7.6 g/dl Hematocrit 22.8 % Mean Corpuscular Volume 93.1 FL Mean Corpuscular Hemoglobin 31.1 PG Mean Corpuscular Hemoglobin Concent 33.5 g/dL Red Cell Distribution Width 14.1 % Platelet Count 229 X10'3 Mean Platelet Volume 7.5 FL Neutrophils (%) (Auto) 58.2 % Lymphocytes (%) (Auto) 27.0 % Monocytes (%) (Auto) 10.1 % Eosinophils (%) (Auto) 3.5 % Basophils (%) (Auto) 1.2 % Neutrophils # (Auto) 4.5 X10'3 Lymphocytes # (Auto) 2.1 X10'3 Monocytes # (Auto) 0.8 X10'3 Eosinophils # (Auto) 0.3 X10'3 Basophils # (Auto) 0.1 X10'3 CBC Comment Prothrombin Time 10.6 SECONDS INR International Normalized Ratio 1.0 INR Coagulation Comments Sodium Level 140 MMOL/L Potassium Level 5.4 MMOL/L Chloride Level 109 MMOL/L Carbon Dioxide Level 24.4 MMOL/L Anion Gap 7 Blood Urea Nitrogen 65 MG/DL Creatinine 2.48 MG/DL Estimated GFR/1.73 m2 18 ML/MIN BUN/Creatinine Ratio 26.2 Glucose Level 141 MG/DL Osmolality 315 MOSM/K Calcium Level 8.8 MG/DL Magnesium Level 2.5 MG/DL Albumin 2.7 G/DL Thyroid Stimulating Hormone (TSH) 0.44 ulU/ml Chemistry Comments Test 12/21/24 12:46 12/21/24 17:48 12/21/24 19:55 12/22/24 03:00 Glucometer 150 mg/dl 126 mg/dl 79 mg/dl Potassium Level 5.6 MMOL/L Test 12/22/24 05:21 12/22/24 07:48 12/22/24 08:08 12/22/24 08:50 White Blood Count 8.9 X10'3 Red Blood Count 2.46 X10'6 2.39 X10'6 Hemoglobin 7.6 g/dl Hematocrit 22.9 % Mean Corpuscular Volume 93.4 FL Mean Corpuscular Hemoglobin 31.1 PG Mean Corpuscular Hemoglobin Concent 33.3 g/dL Red Cell Distribution Width 14.5 % Platelet Count 215 X10'3 Mean Platelet Volume 7.6 FL Neutrophils (%) (Auto) 73.5 % Lymphocytes (%) (Auto) 15.8 % Monocytes (%) (Auto) 9.0 % Eosinophils (%) (Auto) 1.1 % Basophils (%) (Auto) 0.6 % Neutrophils # (Auto) 6.6 X10'3 Lymphocytes # (Auto) 1.4 X10'3 Monocytes # (Auto) 0.8 X10'3 Eosinophils # (Auto) 0.1 X10'3 Basophils # (Auto) 0.1 X10'3 CBC Comment Sodium Level 135 MMOL/L Potassium Level 4.7 MMOL/L Chloride Level 106 MMOL/L Carbon Dioxide Level 20.5 MMOL/L Anion Gap 9 Blood Urea Nitrogen 67 MG/DL Creatinine 2.38 MG/DL Estimated GFR/1.73 m2 19 ML/MIN BUN/Creatinine Ratio 28.2 Glucose Level 180 MG/DL Calcium Level 8.4 MG/DL Magnesium Level 2.3 MG/DL Albumin 2.7 G/DL Chemistry Comments Reticulocyte Count (auto) 2.8 % Absolute Reticulocyte Count [id number] /CUMM Iron Level 35 UG/DL Total Iron Binding Capacity 257 UG/DL Percent Iron Saturation 14 % Glucometer 140 mg/dl Stool Occult Blood Positive Test 12/22/24 12:32 12/22/24 15:26 12/22/24 17:25 Glucometer 118 mg/dl 78 mg/dl Urine Eosinophils Rare eos /HPF Urine Osmolality 445 MOSM/K Urine Random Creatinine 51.0 MG/DL Urine Random Total Protein 93.0 MG/DL Urine Random Sodium 65 MEQ/L Urine Random Potassium 33 MEQ/L Urine Random Urea 584.0 MG/DL Urine Protein/Creatinine Ratio 1.82 mg/mg Cr Urine Opiates Screen Negative Urine Methadone Screen Negative Urine Fentanyl Screen Negative Urine Barbiturates Screen Negative Urine Phencyclidine Screen Negative Urine Amphetamines Screen Negative Urine Benzodiazepines Screen Negative Urine Cocaine Screen Negative Urine Cannabinoids Screen Negative Drug Screen Comment *Problems/Diagnosis: (1) Acute kidney failure (2) Anemia Status: Acute (3) Hyperkalemia Status: Acute (4) Hyponatremia Status: Acute Total Time Spent on D/C: > 30 Minutes Date of Service: Dec 22, 2024 Billing Provider: ROBERT PINTO MD Common Visit Codes: 39532-CTQ/OBS DISCH DAY >30min MINA NUNEZ, RES Dec 22, 2024 17:30 ROBERT PINTO MD Dec 23, 2024 06:21
== END 2024-12-22 17:55 | disposition home or self-care (01) | DRG 640 ==
LOC: ER 12:46 → ED HOLD 18:47 → EDBEDREQ 21:01 → ORTHO 4S 22:19
PROVIDERS: ADMIT Internal Medicine; ATTEND Internal Medicine
DX: E87.1 Hypo-osmolality and hyponatremia (principal); N17.0 Acute kidney failure with tubular necrosis; Z66 Do not resuscitate; I13.0 Hypertensive heart and chronic kidney disease with heart failure and stage 1 through stage 4 chronic kidney disease, or unspecified chronic kidney disease; I27.20 Pulmonary hypertension, unspecified; D63.1 Anemia in chronic kidney disease; E11.22 Type 2 diabetes mellitus with diabetic chronic kidney disease; N18.30 Chronic kidney disease, stage 3 unspecified; I50.32 Chronic diastolic (congestive) heart failure; E78.00 Pure hypercholesterolemia, unspecified; E87.5 Hyperkalemia; R54 Age-related physical debility; I48.91 Unspecified atrial fibrillation; I25.10 Atherosclerotic heart disease of native coronary artery without angina pectoris; Z95.1 Presence of aortocoronary bypass graft; Z83.3 Family history of diabetes mellitus; Z82.49 Family history of ischemic heart disease and other diseases of the circulatory system
CPT/HCPCS: 36415; 71045; 76770; 80048; 80061; 80305; 81001; 82272; 82570; 82948; 83036; 83540; 83550; 83735; 83880; 83930; 83935; 84132; 84133; 84156; 84300; 84443; 84484; 84540; 85025; 85045; 85610; 85651; 86870; 86885; 86900; 86901; 86902; 86905; 87081; 87207; 93005; 93306; 97161; 97530; 99285; G0378; J1815; J7030; J7040; Q4081